=== PATIENT | female | born 1940 | race Caucasian/White ===

== ENCOUNTER 2017-03-05 15:13 | Inpatient (IN) | payer MEDICARE, BC, MEDICAID ==
[2017-03-05] MEDS ORDERED: Sodium Chloride 0.9% 10 ML Syringe FLUSH PRN (15:46)
[2017-03-05] MEDS: Sodium Chloride 0.9% 1,000 ML IV SCH (16:03)
--- NOTE | 2017-03-05 16:20 | CT ---
Head CT Technique: Multiple axial sections through the brain were obtained. Intravenous contrast was utilized. Comparison: No previous intracranial imaging is available. Findings: Ventricles along with basal cisterns and sulci over the convexities are mildly prominent. Diminished density is noted within portions of the basal ganglia, periventricular and subcortical white matter compatible with small vessel ischemic demyelination change. No other abnormal parenchymal densities are seen. No evidence of intracranial hemorrhage. No midline shift or mass effect is seen. Bone window settings were reviewed which shows the visualized sinuses to appear clear. No acute calvarial abnormality is seen. Impression: 1. Senescent change as described above. No acute intracranial abnormality is identified. Diagnostic code #2
--- NOTE | 2017-03-05 16:46 | EDM.PDOC ---
ED HPI GENERAL MEDICAL PROBLEM - General Chief Complaint: Neurological Problem Stated Complaint: SHOWINGS SIGNS OF STROKE Time Seen by Provider: 03/05/17 15:21 Source of Information: Reports: Patient, Long Term Records History Limitations: Reports: Other (Dementia) - History of Present Illness INITIAL COMMENTS - FREE TEXT/NARRATIVE: The patient is a resident of [facility]. The night staff noticed she was acting different last night. This morning she needed more help getting ready and feeding herself. She also uses a walker and she could not do that today. They thought she had some facial drooping to the right. She has generalized weakness. She denies fever, chills, cough, congestion, runny nose, chest pain, shortness of breath, abdominal pain, nausea or vomiting. She had a strong urine odor when they were changing her attends. She is sleepy during my exam but she would follow my commands and shake her head yes or no for my questions. Onset: Gradual Duration: Day(s): (last night) Improves with: Reports: None Worsens with: Reports: None Associated Symptoms: Denies: Cough, Fever/Chills, Headaches, Nausea/Vomiting, Shortness of Breath Back Pain Score (Numeric/FACES): 6 - Related Data Allergies Allergy/AdvReac Type Severity Reaction Status Date / Time meperidine HCl [From Demerol] Allergy Cannot Verified 03/15/15 22:05 Remember Home Meds: Home Meds Acetaminophen [Tylenol Extra Strength] 1,000 mg PO 17 03/15/15 [History] Potassium Chloride [Klor-Con] 20 meq PO BID 03/15/15 [History] metFORMIN [Glucophage] 1,000 mg PO BIDMEALS 03/15/15 [History] Aspirin [[place]ain[place] Chewable Aspirin] 81 mg PO DAILY 08/22/15 [History] Cholecalciferol (Vitamin D3) [Vitamin D3] 2,000 unit PO DAILY 08/22/15 [History] Cyanocobalamin (Vitamin B-12) [B-12] 1,000 mcg PO DAILY 08/22/15 [History] Fish Oil/[place]-3 Fatty Acids [Fish Oil 1,000 MG] 1 each PO DAILY 08/22/15 [ History] Losartan/Hydrochlorothiazide [Losartan-HCTZ 50-12.5 MG] 1 each PO DAILY [History] Memantine HCl [Namenda] 28 mg PO DAILY 08/22/15 [History] Sertraline [Zoloft] 100 mg PO DAILY 08/22/15 [History] risperiDONE 1 mg PO BID 08/22/15 [History] traZODone 50 mg PO BEDTIME #30 tablet 08/26/15 [Rx] Hydrocodone/Acetaminophen [[place] 5-325 Tablet] 1 each PO TID 03/05/17 [History] LORazepam [Ativan] 0.5 mg PO Q6H PRN 03/05/17 [History] Magnesium Hydroxide [Milk of Magnesia] 400 mg PO ASDIRECTED PRN 03/05/17 [ History] Rivastigmine [Exelon] 1 each TD DAILY 03/05/17 [History] [place] Hose 1 applic TOP DAILY 03/05/17 [History] Warfarin [Coumadin] 3 mg PO ASDIRECTED 03/05/17 [History] Warfarin [Coumadin] 4.5 mg PO ASDIRECTED 03/05/17 [History] Past Medical History HEENT History: Reports: Hard of Hearing, Impaired Vision Cardiovascular History: Reports: Hypertension, Other (See Below) Other Cardiovascular History: hypokalemis Gastrointestinal History: Reports: GERD Other Gastrointestinal History: dyspepsia Genitourinary History: Reports: UTI, Recurrent HOU[employer]ING History: Reports: Musculoskeletal History: Reports: Back Pain, Chronic, Osteoporosis, Osteoarthritis Other Musculoskeletal History: bilateral hip osteoarthritis, chronic low back pain Neurological History: Reports: Other (See Below) Other Neuro History: mild cognitive impairment Psychiatric History: Reports: Alzheimers Disease, Dementia Other Psychiatric History: generalized anxiety disorder Endocrine/Metabolic History: Reports: Diabetes, Type II Hematologic History: Reports: Anemia, B12 Deficiency Oncologic (Cancer) History: Reports: Other (See Below) Other Oncologic History: malignant meoplasm of ovary - Past Surgical History Female Surgical History: Reports: Hysterectomy Social & Family History - Family History Family Medical History: Unobtainable - Tobacco Use Smoking Status *Q: Never Smoker Used Tobacco, but Quit: Yes Month Tobacco Last Used: unknown Second Hand Smoke Exposure: No - Caffeine Use Caffeine Use: Reports: Coffee, Tea - Recreational Drug Use Recreational Drug Use: No ED ROS GENERAL - Review of Systems Review Of Systems: See Below Constitutional: Reports: No Symptoms HEENT: Reports: No Symptoms Respiratory: Reports: No Symptoms Cardiovascular: Reports: No Symptoms Endocrine: Reports: No Symptoms GI/Abdominal: Reports: No Symptoms : Reports: No Symptoms Musculoskeletal: Reports: No Symptoms Skin: Reports: No Symptoms Neurological: Reports: Weakness (Generalized weakness) ED EXAM, NEURO - Physical Exam Exam: See Below Exam Limited By: No Limitations General Appearance: Alert, No Apparent Distress Ears: Normal External Exam Nose: Normal Inspection Head Exam: Atraumatic, Normocephalic Neck: Normal Inspection Respiratory/Chest: No Respiratory Distress, Lungs Clear, Normal Breath Sounds Cardiovascular: Regular Rate, Rhythm, No Edema, No Murmur GI/Abdominal: Soft, Non-Tender, No Organomegaly, No Mass Neurological: Other (Sleepy but she answers questions and follows commands. She has generalized weakness but equal strength. ) Back Exam: Normal Inspection Extremities: Normal Inspection EKG INTERPRETATION EKG Date: 03/05/17 Time: 15:27 Rhythm: NSR Rate (Beats/Min): 94 [place]: Normal P-Wave: Present QRS: Normal ST-T: Normal QT: Normal IN/PQ Interval: 1st degree HB Course - Vital Signs Last Recorded V/S: Last Vital Signs Temp 98.1 F 03/05/17 16:27 Pulse 83 03/05/17 17:00 Resp 18 03/05/17 17:00 BP 108/66 03/05/17 17:00 Pulse Ox 97 03/05/17 17:00 - Orders/Labs/Meds Orders: Active Orders 24 hr Category Date Time Status EKG Documentation Completion [RC] STAT Care 03/05/17 15:41 Active Peripheral IV Care [RC] . DIRECTED Care 03/05/17 15:46 Active Urinary Catheter Assessment [RC] ASDIRECTED Care 03/05/17 16:06 Active Chest 1V Frontal [CR] Stat Exams 03/05/17 15:46 Taken CULTURE BLOOD [BC] Stat Lab 03/05/17 16:54 Ordered CULTURE BLOOD [BC] Stat Lab 03/05/17 16:54 Ordered CULTURE URINE [RM] Stat Lab 03/05/17 15:35 Received Sodium Chloride 0.9% [Normal Saline] 1,000 ml Med 03/05/17 16:00 Active IV ASDIRECTED Sodium Chloride 0.9% [Saline Flush] Med 03/05/17 15:46 Active 10 ml FLUSH ASDIRECTED PRN cefTRIAXone [Rocephin] 2 gm Med 03/05/17 16:59 Active Sodium Chloride 0.9% [Normal Saline] 100 ml IV ONETIME Blood Culture x2 Reflex Set [OM.PC] Stat Oth 03/05/17 16:54 Ordered Peripheral IV Insertion Adult [OM.PC] Stat Oth 03/05/17 15:46 Ordered Medication Orders Sodium Chloride (Normal Saline) 1,000 mls @ 125 mls/hr IV ASDIRECTED VALORIE Last Admin: 03/05/17 16:03 Dose: 125 mls/hr Ceftriaxone Sodium 2 gm/ (Sodium Chloride) 100 mls @ 200 mls/hr IV ONETIME ONE Stop: 03/05/17 17:28 Last Admin: 03/05/17 17:10 Dose: 200 mls/hr Sodium Chloride (Saline Flush) 10 ml FLUSH ASDIRECTED PRN PRN Reason: Keep Vein Open Last Admin: 03/05/17 16:03 Dose: 10 ml Labs: Laboratory Tests 03/05/17 03/05/17 03/05/17 Range/Units 15:35 15:45 15:45 WBC 9.57 (3.98-10.04) K/mm3 RBC 4.17 (3.98-5.22) M/mm3 Hgb 12.8 (11.2-15.7) gm/L Hct 40.3 (34.1-44.9) % MCV 96.6 H (79.4-94.8) fl MCH 30.7 (25.6-32.2) pg MCHC 31.8 L (32.2-35.5) g/dl RDW Std Deviation 49.0 H (36.4-46.3) fL Plt Count 231 (182-369) K/mm3 MPV 9.6 (9.4-12.3) fl Neut % (Auto) 76.9 H (34.0-71.1) % Lymph % (Auto) 13.7 L (19.3-51.7) % [place] % (Auto) 9.0 (4.7-12.5) % Eos % (Auto) 0 L (0.7-5.8) Baso % (Auto) 0.3 (0.1-1.2) % Neut # (Auto) 7.36 H (1.56-6.13) K/mm3 Lymph # (Auto) 1.31 (1.18-3.74) K/mm3 [place] # (Auto) 0.86 H (0.24-0.36) K/mm3 Eos # (Auto) 0.00 L (0.04-0.36) K/mm3 Baso # (Auto) 0.03 (0.01-0.08) K/mm3 PT (8.0-13.0) SECONDS INR Sodium 140 (136-145) mEq/L Potassium 4.6 (3.5-5.1) mEq/L Chloride 105 (98-107) mEq/L Carbon Dioxide 27 (21-32) mEq/L Anion Gap 12.6 (5-15) BUN 25 H (7-18) mg/dL Creatinine 1.2 H (0.55-1.02) mg/dL Est Cr Clr Drug Dosing 38.98 mL/min Estimated GFR (MDRD) 43 (>60) mL/min BUN/Creatinine Ratio 20.8 H (14-18) Glucose 129 H (83-115) mg/dL Calcium 9.8 (8.5-10.1) mg/dL Total Bilirubin 0.2 (0.2-1.0) mg/dL AST 15 (15-37) U/L ALT 21 (14-59) U/L Alkaline Phosphatase 53 (46-116) U/L Troponin I < 0.017 (0.00-0.056) ng/mL Total Protein 7.4 (6.4-8.2) g/dl Albumin 3.4 (3.4-5.0) g/dl Globulin 4.0 gm/dL Albumin/Globulin Ratio 0.9 L (1-2) Urine Color Yellow (Yellow) Urine Appearance Clear (Clear) Urine pH 5.5 (5.0-8.0) Ur Specific [place] 1.025 (1.005-1.030) Urine Protein Negative (Negative) Urine Glucose (UA) Negative (Negative) Urine Ketones Negative (Negative) Urine Occult Blood Trace-lysed H (Negative) Urine Nitrite Positive H (Negative) Urine Bilirubin Negative (Negative) Urine Urobilinogen 0.2 (0.2-1.0) Ur Leukocyte Esterase Trace H (Negative) Urine RBC 0-5 (0-5) /hpf Urine WBC 5-10 H (0-5) /hpf Ur Epithelial Cells 0-5 (0-5) /hpf Urine Bacteria Many H (FEW) /hpf Urine Mucus Few (FEW) /hpf 03/05/17 Range/Units 15:45 WBC (3.98-10.04) K/mm3 RBC (3.98-5.22) M/mm3 Hgb (11.2-15.7) gm/L Hct (34.1-44.9) % MCV (79.4-94.8) fl MCH (25.6-32.2) pg MCHC (32.2-35.5) g/dl RDW Std Deviation (36.4-46.3) fL Plt Count (182-369) K/mm3 MPV (9.4-12.3) fl Neut % (Auto) (34.0-71.1) % Lymph % (Auto) (19.3-51.7) % [place] % (Auto) (4.7-12.5) % Eos % (Auto) (0.7-5.8) Baso % (Auto) (0.1-1.2) % Neut # (Auto) (1.56-6.13) K/mm3 Lymph # (Auto) (1.18-3.74) K/mm3 [place] # (Auto) (0.24-0.36) K/mm3 Eos # (Auto) (0.04-0.36) K/mm3 Baso # (Auto) (0.01-0.08) K/mm3 PT 31.0 H (8.0-13.0) SECONDS INR 2.67 Sodium (136-145) mEq/L Potassium (3.5-5.1) mEq/L Chloride (98-107) mEq/L Carbon Dioxide (21-32) mEq/L Anion Gap (5-15) BUN (7-18) mg/dL Creatinine (0.55-1.02) mg/dL Est Cr Clr Drug Dosing mL/min Estimated GFR (MDRD) (>60) mL/min BUN/Creatinine Ratio (14-18) Glucose (83-115) mg/dL Calcium (8.5-10.1) mg/dL Total Bilirubin (0.2-1.0) mg/dL AST (15-37) U/L ALT (14-59) U/L Alkaline Phosphatase (46-116) U/L Troponin I (0.00-0.056) ng/mL Total Protein (6.4-8.2) g/dl Albumin (3.4-5.0) g/dl Globulin gm/dL Albumin/Globulin Ratio (1-2) Urine Color (Yellow) Urine Appearance (Clear) Urine pH (5.0-8.0) Ur Specific [place] (1.005-1.030) Urine Protein (Negative) Urine Glucose (UA) (Negative) Urine Ketones (Negative) Urine Occult Blood (Negative) Urine Nitrite (Negative) Urine Bilirubin (Negative) Urine Urobilinogen (0.2-1.0) Ur Leukocyte Esterase (Negative) Urine RBC (0-5) /hpf Urine WBC (0-5) /hpf Ur Epithelial Cells (0-5) /hpf Urine Bacteria (FEW) /hpf Urine Mucus (FEW) /hpf Meds: Medications Generic Name Dose Route Start Last Admin Trade Name Freq PRN Reason Stop Dose Admin Sodium Chloride 1,000 mls @ 125 mls/hr 03/05/17 16:00 03/05/17 16:03 Normal Saline IV 125 mls/hr ASDIRECTED VALORIE Administration Ceftriaxone Sodium 2 gm/ 100 mls @ 200 mls/hr 03/05/17 16:59 03/05/17 17:10 Sodium Chloride IV 03/05/17 17:28 200 mls/hr ONETIME ONE Administration Sodium Chloride 10 ml 03/05/17 15:46 03/05/17 16:03 Saline Flush FLUSH 10 ml ASDIRECTED PRN Administration Keep Vein Open - Re-Assessments/Exams Free Text/Narrative Re-Assessment/Exam: 03/05/17 16:50 I ordered an IV NS at 125mL/hr, EKG, labs, UA, CXR and CT of her head. 03/05/17 16:[address] was negative. Her CXR shows no infiltrates. Her CBC looks good. Her creatinine is slightly elevated at 1.2. Her troponin is negative. Her UA shows a UTI. I ordered a urine culture and blood cultures. I will order rocephin 2 grams IV. 03/05/17 16:59 03/05/17 17:[address] Ugalde and he agreed to the admission. The patient has a UTI and she has mental status changes from it. Departure - Departure Time of Disposition: 17:25 Disposition: Admitted As Inpatient 65 Condition: Fair Clinical Impression: Renal insufficiency UTI (urinary tract infection) Qualifiers: Urinary tract infection type: site unspecified Hematuria presence: without hematuria Qualified Code(s): N39.0 - Urinary tract infection, site not specified Altered mental status Qualifiers: Altered mental status type: unspecified Qualified Code(s): R41.82 - Altered mental status, unspecified - Discharge Information Referrals: Maxx Hutton MD [Primary Care Provider] - Forms: ED Department Discharge - My Orders Last 24 Hours: My Active Orders 03/05/17 15:35 CULTURE URINE [RM] Stat 03/05/17 15:41 EKG Documentation Completion [RC] STAT 03/05/17 15:46 Peripheral IV Care [RC] . DIRECTED Chest 1V Frontal [CR] Stat Sodium Chloride 0.9% [Saline Flush] 10 ml FLUSH ASDIRECTED PRN Peripheral IV Insertion Adult [OM.PC] Stat 03/05/17 16:00 Sodium Chloride 0.9% [Normal Saline] 1,000 ml IV ASDIRECTED 03/05/17 16:06 Urinary Catheter Assessment [RC] ASDIRECTED 03/05/17 16:54 CULTURE BLOOD [BC] Stat CULTURE BLOOD [BC] Stat Blood Culture x2 Reflex Set [OM.PC] Stat 03/05/17 16:59 cefTRIAXone [Rocephin] 2 gm Sodium Chloride 0.9% [Normal Saline] 100 ml IV ONETIME - Assessment/Plan Last 24 Hours: My Active Orders 03/05/17 15:35 CULTURE URINE [RM] Stat 03/05/17 15:41 EKG Documentation Completion [RC] STAT 03/05/17 15:46 Peripheral IV Care [RC] . DIRECTED Chest 1V Frontal [CR] Stat Sodium Chloride 0.9% [Saline Flush] 10 ml FLUSH ASDIRECTED PRN Peripheral IV Insertion Adult [OM.PC] Stat 03/05/17 16:00 Sodium Chloride 0.9% [Normal Saline] 1,000 ml IV ASDIRECTED 03/05/17 16:06 Urinary Catheter Assessment [RC] ASDIRECTED 03/05/17 16:54 CULTURE BLOOD [BC] Stat CULTURE BLOOD [BC] Stat Blood Culture x2 Reflex Set [OM.PC] Stat 03/05/17 16:59 cefTRIAXone [Rocephin] 2 gm Sodium Chloride 0.9% [Normal Saline] 100 ml IV ONETIME
[2017-03-05] MEDS ORDERED: cefTRIAXone 2 GM in Sodium Chloride 0.9% 100 ML IV ONE (16:59)
[2017-03-05] MEDS ORDERED: Diphtheria,Pertussis(Acell),Tetanus Vaccine 0.5 ML SDV IM ONE (18:25)
[2017-03-05] MEDS ORDERED: LORazepam 0.5 MG Tab PO PRN (19:13)
[2017-03-05] MEDS ORDERED: Magnesium Hydroxide 400 MG/5 ML Susp 30 ML Cup PO PRN ×2 (19:13→22:47)
--- NOTE | 2017-03-05 19:13 | PCM.HP ---
H&P History of Present Illness - General Date of Service: 03/05/17 Admit Problem/Dx: Admission Diagnosis/Problem Admission Diagnosis/Problem UTI, Urinary tract infectious disease Source of Information: Patient, Old Records, Provider, RN Notes Reviewed History Limitations: Reports: Altered Mental Status, Physical Impairment - History of Present Illness Initial Comments - Free Text/Narative: This is a 77 yo elderly white female with past medical hx/o Impaired Vision/ Hearing, HTN, DM2, Chronic Anemia, Chronic Hypokalemia, GERD/Dyspepsia, Chronic Constipation, Chronic Back Pain/Left Hip Pain, Osteoporosis, OA/DJD, Alzheimer' s Disease, Schizophrenia/Psychosis, JAKOB, On warfarin therapy for PE, Urinary Retention, and Vitamin B 12 Deficiency who was brought in from [facility] due to change in her demeanor. She was observed needing more help getting ready and feeding herself. Per secondary sources, she may have some facial droop to the right and generalized weakness. She denies any systemic signs of infection. No chest pain or shortness of breath. No GI or complaints. Patient is a poor historian. Her history of present illness was obtained from secondary sources. Her initial workup in the emergency department shows a CBC remarkable for neutrophils of 76.9% and lymphocytes of 13.7%. INR is therapeutic at 2.67. Her chemistry is remarkable for BUN of 25, creatinine of 1.2, glucose of 129. Her troponin 1 is negative. Her UA is suggestive of urinary tract infection. The EKG shows normal sinus rhythm. Her chest x-ray shows no acute abnormal finding. Her head CT scan report reads no acute intra-cranial abnormalities identified. Patient is being admitted for altered mental status and urinary tract infection. She is DNR. Back Pain Score (Numeric/FACES): 6 - Related Data Allergies/Adverse Reactions: Allergies Allergy/AdvReac Type Severity Reaction Status Date / Time meperidine HCl [From Demerol] Allergy Cannot Verified 03/15/15 22:05 Remember Home Medications: Home Meds Acetaminophen [Tylenol Extra Strength] 1,000 mg PO 17 03/15/15 [History] Potassium Chloride [Klor-Con] 20 meq PO BID 03/15/15 [History] metFORMIN [Glucophage] 1,000 mg PO BIDMEALS 03/15/15 [History] Aspirin [[place] Chewable Aspirin] 81 mg PO DAILY 08/22/15 [History] Cholecalciferol (Vitamin D3) [Vitamin D3] 2,000 unit PO DAILY 08/22/15 [History] Cyanocobalamin (Vitamin B-12) [B-12] 1,000 mcg PO DAILY 08/22/15 [History] Fish Oil/[place]-3 Fatty Acids [Fish Oil 1,000 MG] 1 each PO DAILY 08/22/15 [ History] Losartan/Hydrochlorothiazide [Losartan-HCTZ 50-12.5 MG] 1 each PO DAILY [History] Memantine HCl [Namenda] 28 mg PO DAILY 08/22/15 [History] Sertraline [Zoloft] 100 mg PO DAILY 08/22/15 [History] risperiDONE 1 mg PO BID 08/22/15 [History] traZODone 50 mg PO BEDTIME #30 tablet 08/26/15 [Rx] Hydrocodone/Acetaminophen [[place] 5-325 Tablet] 1 each PO TID 03/05/17 [History] LORazepam [Ativan] 0.5 mg PO Q6H PRN 03/05/17 [History] Magnesium Hydroxide [Milk of Magnesia] 1,500 ml PO ASDIRECTED PRN 03/05/17 [ History] Rivastigmine [Exelon] 1 each TD DAILY 03/05/17 [History] Kyle Hose 1 applic TOP DAILY 03/05/17 [History] Warfarin [Coumadin] 3 mg PO ASDIRECTED 03/05/17 [History] Warfarin [Coumadin] 4.5 mg PO ASDIRECTED 03/05/17 [History] Past Medical History HEENT History: Reports: Hard of Hearing, Impaired Vision Cardiovascular History: Reports: Hypertension, Other (See Below) Other Cardiovascular History: hypokalemis Gastrointestinal History: Reports: GERD Other Gastrointestinal History: dyspepsia Genitourinary History: Reports: UTI, Recurrent [employer] History: Reports: Musculoskeletal History: Reports: Back Pain, Chronic, Osteoporosis, Osteoarthritis Other Musculoskeletal History: bilateral hip osteoarthritis, chronic low back pain Neurological History: Reports: Other (See Below) Other Neuro History: mild cognitive impairment Psychiatric History: Reports: Alzheimers Disease, Dementia, Schizophrenia Other Psychiatric History: generalized anxiety disorder Endocrine/Metabolic History: Reports: Diabetes, Type II Hematologic History: Reports: Anemia, B12 Deficiency Oncologic (Cancer) History: Reports: Other (See Below) Other Oncologic History: malignant meoplasm of ovary - Infectious Disease History Infectious Disease History: Reports: Other (See Below) Other Infectious Disease History: unable to assess pt. is confused. - Past Surgical History Female Surgical History: Reports: Hysterectomy Social & Family History - Family History Family Medical History: Unobtainable - Tobacco Use Smoking Status *Q: Unknown Ever Smoked Used Tobacco, but Quit: Yes Month Tobacco Last Used: unknown Second Hand Smoke Exposure: No - Caffeine Use Caffeine Use: Reports: Other Other Caffeine Use: unable to access - Recreational Drug Use Recreational Drug Use: No H&P Review of Systems - Review of Systems: Review Of Systems: See Below Free Text/Narrative: ROS Limited due to AMS Neurological: Reports: Confusion (Baseline Dementia), Difficulty Walking, Weakness, Gait Disturbance Hematologic/Lymphatic: Reports: No Symptoms Immunologic: Reports: No Symptoms Exam - Exam Exam: See Below - Vital Signs Vital Signs: Last Vital Signs Temp 36.7 C 03/05/17 18:06 Pulse 85 03/05/17 18:06 Resp 14 03/05/17 18:06 BP 135/69 03/05/17 18:06 Pulse Ox 91 L 03/05/17 18:06 Weight: 72.938 kg - Exam General: Cooperative, Lethargic, Other (Answers questions and follow commands). No: Mild Distress HEENT: Mucosa Moist & [place]. No: Conjunctiva Clear, Nares Patent, Normal Nasal Septum, Pupils Equal, Pupils Reactive Neck: Supple. No: JVD Lungs: Clear to Auscultation, Normal Respiratory Effort Cardiovascular: Regular Rate, Regular Rhythm. No: Systolic Murmur GI/Abdominal Exam: Normal Bowel Sounds, Soft, Non-Tender, No Organomegaly (Female) Exam: Deferred Rectal (Female) Exam: Deferred Back Exam: Normal Inspection Extremities: Normal Inspection, Normal Range of Motion, Non-Tender, No Pedal Edema Peripheral Pulses: 2+: Posterior Tibial (L), Posterior Tibial (R), Dorsalis Pedis (L), Dorsalis Pedis (R) Skin: Warm, Dry, Intact Neuro Extensive - Mental Status: Normal Mood/Affect, Nl Response to Commands. No: Oriented x3, Memory Intact Neuro Extensive - Motor, Sensory, Reflexes: CN II-XII Intact (limited exam due to lethargy ), Abnormal Gait, Other (She is wheelchair bound ) Psychiatric: Normal Affect, Normal Mood - Patient Data Result Diagrams: 03/06/17 06:00 03/06/17 06:00 EKG INTERPRETATION EKG Date: 03/05/17 Time: 15:27 Rhythm: NSR Rate (Beats/Min): 94 [place]: Normal P-Wave: Present QRS: Normal ST-T: Normal QT: Normal UT/PQ Interval: 1st Degree AVB *Q Meaningful Use (ADM) - VTE *Q VTE Criteria *Q: - Stroke *Q Stroke Criteria *Q: - AMI *Q AMI Criteria *Q: Problem List Initiated/Reviewed/Updated: Yes Orders Last 24hrs: Active Orders 24 hr Category Date Time Status Admission Status [Patient Status] [ADT] Routine ADT 03/05/17 18:00 Active Vaccines to be Administered [RC] PER UNIT ROUTINE Care 03/05/17 18:25 Active METH-RESIST S.AUR,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 [MOLEC] Routine Lab 03/05/17 18:29 Received Medication Orders Sodium Chloride (Normal Saline) 1,000 mls @ 125 mls/hr IV ASDIRECTED VALORIE Last Admin: 03/05/17 16:03 Dose: 125 mls/hr Sodium Chloride (Saline Flush) 10 ml FLUSH ASDIRECTED PRN PRN Reason: Keep Vein Open Last Admin: 03/05/17 16:03 Dose: 10 ml Assessment/Plan Comment:: Assessment/Plan: Acute: AMS/Encephalopathy - Acute on Chronic likely from UA - Has underlying Alzheimer's Disease and Medications Side effects: Trazodone 50 mg po HS, [place] 5 mg po TID, Namenda 28 mg po Daily, and Exelon 1 tab po TD Daily - UA pos for UTI - CXR negative for acute abnormal findings Urinary Tract Infection - Has Urinary Retention - Risk factors: Impaired Cognition, Non-Ambulatory, Hx/o Recurrent UTI and on Meds with Anti-cholinergic - Likely the cause of her Acute AMS - UA suggestive of UTI - Received IV Rocephin in ED - Continue IV ATB Generalized Weakness - Head CT scan negative for acute abnormal findings - Likely multi-factorial - PT/OT consult - Vit D level and TFT in AM - Fall Precautions Mild Renal Insufficiency - BUn 25 and Cr is 1.2 - Baseline is Cr 0.8-0.9 - CUrrently Hydrating Hx/o Pulmonary Embolism - On Warfarin Therapy - INR is therapeutic at this point Chronic: Impaired Vision/Hearing HTN DM2 Anemia Hypokalemia GERD/Dyspepsia Constipation Back Pain/Left Hip Pain Osteoporosis OA/DJD Alzheimer's Disease Schizophrenia/Psychosis JAKOB Vit B 12 Deficiency Plan: Admit to Med-Surg Routine AM Labs Resume Home Meds Aspiration/Fall Precautions Protocol PT/OT consult SW/CM for d/c planning Code status: DNR
[2017-03-05] MEDS ORDERED: Warfarin 3 MG Tab PO SCH ×2 (19:15→20:00)
[2017-03-05] MEDS ORDERED: hydrALAZINE 20 MG/ML SDV IVPUSH PRN (19:15)
[2017-03-05] MEDS ORDERED: LORazepam 2 MG/ML MDV IVPUSH PRN (19:15)
[2017-03-05] MEDS ORDERED: Metoprolol Tartrate 5 MG/5 ML SDV IVPUSH PRN (19:15)
[2017-03-05] MEDS ORDERED: Albuterol 0.083% 2.5 MG/3 ML Neb Soln NEB PRN (19:22)
[2017-03-05] MEDS ORDERED: Promethazine 12.5 MG in Sodium Chloride 0.9% 50 ML IV PRN (19:22)
[2017-03-05] MEDS ORDERED: Polyethylene Glycol 3350 Powder 17 GM Packet PO PRN (19:22)
[2017-03-05] MEDS ORDERED: Acetaminophen 325 MG Tab PO PRN (19:22)
[2017-03-05] MEDS ORDERED: LORazepam 2 MG/ML MDV IV PRN (19:22)
[2017-03-05] MEDS ORDERED: Ondansetron 4 MG/2 ML SDV IV PRN (19:22)
[2017-03-05] MEDS ORDERED: HYDROmorphone 1 MG/ML Syringe IVPUSH PRN (19:22)
[2017-03-05] MEDS ORDERED: Bisacodyl 5 MG Tab PO PRN (19:22)
[2017-03-05] MEDS ORDERED: 50% Dextrose in Water 50 ML Syringe IVPUSH PRN (19:27)
[2017-03-05] MEDS ORDERED: Insulin Aspart 100 Units/ML 3 ML Pen SUBCUT SCH (19:30)
[2017-03-05] MEDS: Potassium Chloride 20 MEQ Tab.ER PO SCH (22:08)
[2017-03-05] MEDS: Acetaminophen/HYDROcodone 325-5 MG Tab PO SCH (22:08)
[2017-03-05] MEDS: risperiDONE 1 MG Tab PO SCH (22:09)
[2017-03-05] MEDS: traZODone 50 MG Tab PO SCH (22:10)
[2017-03-06] MEDS: Sodium Chloride 0.9% 1,000 ML IV SCH ×4 (01:48→23:07)
[2017-03-06] MEDS: Insulin Aspart 100 Units/ML 3 ML Pen SUBCUT SCH ×3 (06:44→21:45)
[2017-03-06] MEDS: metFORMIN 500 MG Tab PO SCH ×2 (06:47→16:08)
[2017-03-06] MEDS: Potassium Chloride 20 MEQ Tab.ER PO SCH ×2 (06:47→16:08)
--- NOTE | 2017-03-06 07:53 | PCM.PN ---
- General Info Date of Service: 03/06/17 Admission Dx/Problem (Free Text): Admission Diagnosis/Problem Admission Diagnosis/Problem UTI, Urinary tract infectious disease Subjective Update: Follow Up Functional Status: Reports: Pain Controlled, Tolerating Diet, Urinating. Denies : Ambulating, New Symptoms - Review of Systems General: Denies: Fever, Weakness, Fatigue, Malaise, Chills HEENT: Reports: No Symptoms Pulmonary: Denies: Shortness of Breath Cardiovascular: Denies: Chest Pain, Palpitations, Dyspnea on Exertion, Lightheadedness Gastrointestinal: Denies: Abdominal Pain, Nausea, Vomiting Genitourinary: Reports: No Symptoms Musculoskeletal: Reports: No Symptoms Skin: Denies: Cyanosis, Pallor, Diaphoresis, Rash Neurological: Denies: Confusion, Difficulty Walking, Weakness, Gait Disturbance Psychiatric: Denies: Depression, Anxiety, Agitation, Hallucinations Systems Review Comment:: No significant overnight or acute issues. She slept and feels pretty good. She is drinking and eating okay. She wants to call her . She has no new complaints. - Patient Data Vitals - Most Recent: Last Vital Signs Temp 37.1 C 03/06/17 07:37 Pulse 82 03/06/17 07:37 Resp 14 03/06/17 07:37 BP 129/71 03/06/17 07:37 Pulse Ox 93 L 03/06/17 07:37 Weight - Most Recent: 73.119 kg I&O - Last 24 Hours: Intake & Output 03/05/17 03/06/17 03/06/17 22:59 06:59 14:59 Intake Total 1149 Balance 1149 Lab Results Last 24 Hours: Laboratory Results - last 24 hr 03/05/17 03/05/17 03/05/17 Range/Units 18:29 20:17 22:06 WBC (3.98-10.04) K/mm3 RBC (3.98-5.22) M/mm3 Hgb (11.2-15.7) gm/L Hct (34.1-44.9) % MCV (79.4-94.8) fl MCH (25.6-32.2) pg MCHC (32.2-35.5) g/dl RDW Std Deviation (36.4-46.3) fL Plt Count (182-369) K/mm3 MPV (9.4-12.3) fl Neut % (Auto) (34.0-71.1) % Lymph % (Auto) (19.3-51.7) % [place] % (Auto) (4.7-12.5) % Eos % (Auto) (0.7-5.8) Baso % (Auto) (0.1-1.2) % Neut # (Auto) (1.56-6.13) K/mm3 Lymph # (Auto) (1.18-3.74) K/mm3 [place] # (Auto) (0.24-0.36) K/mm3 Eos # (Auto) (0.04-0.36) K/mm3 Baso # (Auto) (0.01-0.08) K/mm3 Manual Slide Review PT 34.2 H (8.0-13.0) SECONDS INR 2.93 Sodium (136-145) mEq/L Potassium (3.5-5.1) mEq/L Chloride (98-107) mEq/L Carbon Dioxide (21-32) mEq/L Anion Gap (5-15) BUN (7-18) mg/dL Creatinine (0.55-1.02) mg/dL Est Cr Clr Drug Dosing mL/min Estimated GFR (MDRD) (>60) mL/min BUN/Creatinine Ratio (14-18) Glucose (83-115) mg/dL POC Glucose 126 H (83-110) mg/dL Calcium (8.5-10.1) mg/dL Magnesium (1.8-2.4) mg/dl C-Reactive Protein (<1.0) mg/dL Free T4 (0.76-1.46) ng/dL TSH 3rd Generation (0.358-3.74) uIU/mL MRSA (PCR) Negative 03/06/17 03/06/17 03/06/17 Range/Units 06:00 06:00 06:00 WBC 7.21 (3.98-10.04) K/mm3 RBC 3.96 L (3.98-5.22) M/mm3 Hgb 12.1 (11.2-15.7) gm/L Hct 38.0 (34.1-44.9) % MCV 96.0 H (79.4-94.8) fl MCH 30.6 (25.6-32.2) pg MCHC 31.8 L (32.2-35.5) g/dl RDW Std Deviation 48.3 H (36.4-46.3) fL Plt Count 199 (182-369) K/mm3 MPV 9.4 (9.4-12.3) fl Neut % (Auto) 71.9 H (34.0-71.1) % Lymph % (Auto) 14.7 L (19.3-51.7) % [place] % (Auto) 12.6 H (4.7-12.5) % Eos % (Auto) 0.1 L (0.7-5.8) Baso % (Auto) 0.3 (0.1-1.2) % Neut # (Auto) 5.18 (1.56-6.13) K/mm3 Lymph # (Auto) 1.06 L (1.18-3.74) K/mm3 [place] # (Auto) 0.91 H (0.24-0.36) K/mm3 Eos # (Auto) 0.01 L (0.04-0.36) K/mm3 Baso # (Auto) 0.02 (0.01-0.08) K/mm3 Manual Slide Review Not Reportable PT 35.7 H (8.0-13.0) SECONDS INR 3.05 Sodium 140 (136-145) mEq/L Potassium 4.0 (3.5-5.1) mEq/L Chloride 103 (98-107) mEq/L Carbon Dioxide 28 (21-32) mEq/L Anion Gap 13.0 (5-15) BUN 21 H (7-18) mg/dL Creatinine 1.0 (0.55-1.02) mg/dL Est Cr Clr Drug Dosing 46.77 mL/min Estimated GFR (MDRD) 54 (>60) mL/min BUN/Creatinine Ratio 21.0 H (14-18) Glucose 124 H (83-115) mg/dL POC Glucose (83-110) mg/dL Calcium 8.7 (8.5-10.1) mg/dL Magnesium 1.5 L (1.8-2.4) mg/dl C-Reactive Protein 3.3 H* (<1.0) mg/dL Free T4 0.88 (0.76-1.46) ng/dL TSH 3rd Generation 0.871 (0.358-3.74) uIU/mL MRSA (PCR) 03/06/17 Range/Units 06:43 WBC (3.98-10.04) K/mm3 RBC (3.98-5.22) M/mm3 Hgb (11.2-15.7) gm/L Hct (34.1-44.9) % MCV (79.4-94.8) fl MCH (25.6-32.2) pg MCHC (32.2-35.5) g/dl RDW Std Deviation (36.4-46.3) fL Plt Count (182-369) K/mm3 MPV (9.4-12.3) fl Neut % (Auto) (34.0-71.1) % Lymph % (Auto) (19.3-51.7) % [place] % (Auto) (4.7-12.5) % Eos % (Auto) (0.7-5.8) Baso % (Auto) (0.1-1.2) % Neut # (Auto) (1.56-6.13) K/mm3 Lymph # (Auto) (1.18-3.74) K/mm3 [place] # (Auto) (0.24-0.36) K/mm3 Eos # (Auto) (0.04-0.36) K/mm3 Baso # (Auto) (0.01-0.08) K/mm3 Manual Slide Review PT (8.0-13.0) SECONDS INR Sodium (136-145) mEq/L Potassium (3.5-5.1) mEq/L Chloride (98-107) mEq/L Carbon Dioxide (21-32) mEq/L Anion Gap (5-15) BUN (7-18) mg/dL Creatinine (0.55-1.02) mg/dL Est Cr Clr Drug Dosing mL/min Estimated GFR (MDRD) (>60) mL/min BUN/Creatinine Ratio (14-18) Glucose (83-115) mg/dL POC Glucose 118 H (83-110) mg/dL Calcium (8.5-10.1) mg/dL Magnesium (1.8-2.4) mg/dl C-Reactive Protein (<1.0) mg/dL Free T4 (0.76-1.46) ng/dL TSH 3rd Generation (0.358-3.74) uIU/mL MRSA (PCR) Med Orders - Current: Current Medications Acetaminophen (Tylenol) 975 mg PO DAILY@1700 [facility] Acetaminophen (Tylenol) 650 mg PO Q4H PRN PRN Reason: Pain (Mild 1-3)/fever Hydrocodone Bitart/Acetaminophen (Alva 325-5 Mg) 1 tab PO TID [facility] Last Admin: 03/05/17 22:08 Dose: 1 tab Albuterol (Proventil Neb Soln) 2.5 mg NEB Q2H PRN PRN Reason: Shortness Of Breath/wheezing Aspirin (Halfprin) 81 mg PO DAILY [facility] Bisacodyl (Dulcolax) 5 mg PO DAILY PRN PRN Reason: Constipation Cholecalciferol (Vitamin D3) 2,000 units PO DAILY [facility] Cyanocobalamin (Vitamin B12) 1,000 mcg PO DAILY [facility] Dextrose/Water (Dextrose 50% In Water) 50 ml IVPUSH ASDIRECTED PRN PRN Reason: Hypoglycemia Fish Oil (Fish Oil) 1 gm PO DAILY [facility] Hydralazine HCl (Apresoline) 10 mg IVPUSH Q4H PRN PRN Reason: Hypertension Hydrochlorothiazide (Hydrochlorothiazide) 12.5 mg PO DAILY [facility] Hydromorphone HCl (Dilaudid) 0.25 mg IVPUSH Q2H PRN PRN Reason: Pain (severe 7-10) Sodium Chloride (Normal Saline) 1,000 mls @ 100 mls/hr IV ASDIRECTED [facility] Last Admin: 03/06/17 01:49 Dose: 125 mls/hr Promethazine HCl 12.5 mg/ (Sodium Chloride) 50.5 mls @ 100 mls/hr IV Q6H PRN PRN Reason: Nausea/Vomiting Ceftriaxone Sodium 1 gm/ (Sodium Chloride) 100 mls @ 200 mls/hr IV Q24H [facility] Insulin Aspart (Novolog) 0 unit SUBCUT BID [facility] PRN Reason: Protocol Last Admin: 03/06/17 06:44 Dose: Not Given Lorazepam (Ativan) 0.5 mg PO Q6H PRN PRN Reason: Anxiety Lorazepam (Ativan) 2 mg IVPUSH Q4H PRN PRN Reason: Seizures Lorazepam (Ativan) 0.25 mg IV Q6H PRN PRN Reason: Anxiety Losartan Potassium (Cozaar) 50 mg PO DAILY [facility] Magnesium Hydroxide (Milk Of Magnesia) 15 ml PO Q8H PRN PRN Reason: Constipation Magnesium Sulfate (Pharmacy To Dose - Magnesium Replacement) 1 dose .XX ASDIRECTED [facility] Memantine (Namenda) 28 mg PO DAILY [facility] Metformin HCl (Glucophage) 1,000 mg PO BIDMEALS [facility] Last Admin: 03/06/17 06:47 Dose: 1,000 mg Metoprolol Tartrate (Lopressor) 5 mg IVPUSH Q4H PRN PRN Reason: Tachycardia Non-Formulary Medication (Rivastigmine [Exelon]) 1 each TD DAILY [facility] Ondansetron HCl (Zofran) 4 mg IV Q6H PRN PRN Reason: Nausea/Vomiting Polyethylene Glycol (Miralax) 17 gm PO DAILY PRN PRN Reason: Constipation Potassium Chloride (Klor-Con M20) 20 meq PO BIDMEALS [facility] Last Admin: 03/06/17 06:47 Dose: 20 meq Potassium Chloride (Pharmacy To Dose - Potassium Replacement) 1 dose .XX ASDIRECTED [facility] Risperidone (Risperidal) 1 mg PO BID [facility] Last Admin: 03/05/17 22:09 Dose: 1 mg Senna/Docusate Sodium (Senna Plus) 1 tab PO BID PRN PRN Reason: Constipation Sertraline HCl (Zoloft) 100 mg PO DAILY [facility] Sodium Chloride (Saline Flush) 10 ml FLUSH ASDIRECTED PRN PRN Reason: Keep Vein Open Last Admin: 03/05/17 16:03 Dose: 10 ml Trazodone HCl (Trazodone) 50 mg PO BEDTIME [facility] Last Admin: 03/05/17 22:10 Dose: 50 mg Warfarin Sodium (Pharmacy To Dose - Warfarin) 1 dose .XX ASDIRECTED [facility] Warfarin Sodium (Coumadin) 4.5 mg PO MoFr@1800 [facility] Last Admin: 03/05/17 22:09 Dose: 4.5 mg Warfarin Sodium (Coumadin) 3 mg PO SUTUWETHSA [facility] Discontinued Medications Diphtheria/Tetanus/Acell Pertussis (Adacel) 0.5 ml IM .ONCE ONE Stop: 03/05/17 18:26 Ceftriaxone Sodium 2 gm/ (Sodium Chloride) 100 mls @ 200 mls/hr IV ONETIME ONE Stop: 03/05/17 17:28 Last Admin: 03/05/17 17:10 Dose: 200 mls/hr Insulin Aspart (Novolog) 0 unit SUBCUT ASDIRECTED [facility] PRN Reason: Protocol Magnesium Hydroxide (Milk Of Magnesia) ml PO ASDIRECTED PRN PRN Reason: Constipation Memantine (Namenda) 28 mg PO DAILY [facility] Warfarin Sodium (Coumadin) 3 mg PO ASDIRECTED [facility] Warfarin Sodium (Coumadin) 4.5 mg PO ASDIRECTED [facility] - Exam General: Alert, Cooperative, No Acute Distress HEENT: Pupils Equal, Pupils Reactive, EOMI, Mucous Membr. Moist/[place] Neck: Supple, Trachea Midline, No Thyromegaly Lungs: Clear to Auscultation, Normal Respiratory Effort Cardiovascular: Regular Rate, Regular Rhythm GI/Abdominal Exam: Normal Bowel Sounds, Soft, Non-Tender, No Organomegaly, No Distention (Female) Exam: Deferred Back Exam: Normal Inspection, Decreased Range of Motion Extremities: Normal Inspection, Normal Range of Motion, Non-Tender, No Pedal Edema Peripheral Pulses: 2+: Dorsalis Pedis (L), Dorsalis Pedis (R) Skin: Warm, Dry, Intact Neurological: No New Focal Deficit Psy/Mental Status: Alert, Normal Mood. No: Normal Affect Physical Findings Comments:: She seems to be at her baseline clinically. She is alert/awake and engaging. - Problem List Review Problem List Initiated/Reviewed/Updated: Yes - My Orders Last 24 Hours: My Active Orders 03/05/17 18:25 Vaccines to be Administered [RC] PER UNIT ROUTINE 03/05/17 19:13 LORazepam [Ativan] 0.5 mg PO Q6H PRN 03/05/17 19:15 LORazepam [Ativan] 2 mg IVPUSH Q4H PRN Magnesium Rep Pharmacy to Dose [Pharmacy to Dose - Magnesium Replacement] 1 dose .XX ASDIRECTED Metoprolol Tartrate [Lopressor] 5 mg IVPUSH Q4H PRN Potassium Rep Pharmacy to Dose [Pharmacy to Dose - Potassium Replacement] 1 dose .XX ASDIRECTED Warfarin Pharmacy to Dose [Pharmacy to Dose - Warfarin] 1 dose .XX ASDIRECTED hydrALAZINE [Apresoline] 10 mg IVPUSH Q4H PRN 03/05/17 19:22 Height and Weight [RC] 04 Intake and Output [RC] 04,22 Oxygen Therapy [RC] PRN Up ad Marisol [RC] ASDIRECTED VTE/DVT Education [RC] PER UNIT ROUTINE Vital Signs [RC] Q4HR Acetaminophen [Tylenol] 650 mg PO Q4H PRN Albuterol [Proventil Neb Soln] 2.5 mg NEB Q2H PRN Bisacodyl [Dulcolax] 5 mg PO DAILY PRN Docusate Sodium/Sennosides [Senna Plus] 1 tab PO BID PRN HYDROmorphone [Dilaudid] 0.25 mg IVPUSH Q2H PRN LORazepam [Ativan] 0.25 mg IV Q6H PRN Ondansetron [Zofran] 4 mg IV Q6H PRN Polyethylene Glycol 3350 [MiraLAX] 17 gm PO DAILY PRN Promethazine [Phenergan] 12.5 mg Sodium Chloride 0.9% [Normal Saline] 50 ml IV Q6H Resuscitation Status Routine 03/05/17 19:24 RT Aerosol Therapy [RC] ASDIRECTED 03/05/17 19:25 Consult to Case Management [CONS] Routine Consult to Industrial Education Teacher [CONS] Routine Consult to Spiritual Care [CONS] Routine OT Evaluation and Treatment [CONS] Routine PT Evaluation and Treatment [CONS] Routine 03/05/17 19:27 Blood Glucose Check, Bedside [RC] 07,21 Dextrose 50% in Water 50 ml IVPUSH ASDIRECTED PRN 03/05/17 20:00 Potassium Chloride [Klor-Con M20] 20 meq PO BIDMEALS Warfarin [Coumadin] 4.5 mg PO MoFr@1800 03/05/17 21:00 Acetaminophen/HYDROcodone [Alva 325-5 MG] 1 tab PO TID risperiDONE [RisperiDAL] 1 mg PO BID traZODone 50 mg PO BEDTIME 03/05/17 22:47 Magnesium Hydroxide [Milk of Magnesia] 15 ml PO Q8H PRN 03/05/17 Dinner Regular Diet [DIET] 03/06/17 06:00 VITAMIN D 25-HYROXY (D2, D3) [REF] Routine 03/06/17 07:00 Insulin Aspart [NovoLOG] See Protocol SUBCUT BID metFORMIN [Glucophage] 1,000 mg PO BIDMEALS 03/06/17 09:00 Aspirin [Halfprin] 81 mg PO DAILY Cholecalciferol (Vitamin D3) [Vitamin D3] 2,000 units PO DAILY Cyanocobalamin (Vitamin B12) [Vitamin B12] 1,000 mcg PO DAILY Fish Oil/[place]-3 Fatty Acids [Fish Oil] 1 gm PO DAILY Hydrochlorothiazide 12.5 mg PO DAILY Losartan [Cozaar] 50 mg PO DAILY Memantine [Namenda] 28 mg PO DAILY Rivastigmine [Exelon] 1 each TD DAILY Sertraline [Zoloft] 100 mg PO DAILY 03/06/17 17:00 Acetaminophen [Tylenol] 975 mg PO DAILY@1700 cefTRIAXone [Rocephin] 1 gm Sodium Chloride 0.9% [Normal Saline] 100 ml IV Q24H 03/06/17 18:00 Warfarin [Coumadin] 3 mg PO SUTUWETHSA 03/07/17 05:11 BASIC METABOLIC PANEL,BMP [CHEM] AM C-REACTIVE PROTEIN [CHEM] AM INR,PT,PROTHROMBIN TIME [COAG] AM MAGNESIUM [CHEM] AM 03/08/17 05:11 BASIC METABOLIC PANEL,BMP [CHEM] AM C-REACTIVE PROTEIN [CHEM] AM INR,PT,PROTHROMBIN TIME [COAG] AM MAGNESIUM [CHEM] AM 03/09/17 05:11 INR,PT,PROTHROMBIN TIME [COAG] AM MAGNESIUM [CHEM] AM - Plan Plan:: Assessment/Plan: Acute: Urinary Tract Infection - Has Urinary Retention - Risk factors: Impaired Cognition, Non-Ambulatory, Hx/o Recurrent UTI and on Meds with Anti-cholinergic - Likely the cause of her Acute AMS - UA suggestive of UTI; Pos GNR - Received IV Rocephin in ED - Continue IV ATB Generalized Weakness - Head CT scan negative for acute abnormal findings - Likely multi-factorial - Continue PT/OT consult - Vit D level penidng - TFT normal - Fall Precautions Mild Renal Insufficiency, Improved - BUn 25--> 21 and Cr is 1.2--> 1.0 - Baseline is Cr 0.8-0.9 - Continue IVF Hx/o Pulmonary Embolism - On Warfarin Therapy - INR is therapeutic at 3.05 - Pharmacy to monitor Hypomagnesemia - Mg 1.5 - 2/2 inadequate intake - Pharmacy to replete and monitor Resolved: AMS/Encephalopathy, She is now at baseline - Acute on Chronic likely from UA - Has underlying Alzheimer's Disease and Medications Side effects: Trazodone 50 mg po HS, Alva 5 mg po TID, Namenda 28 mg po Daily, and Exelon 1 tab po TD Daily - UA pos for GNR - CXR negative for acute abnormal findings Chronic: Impaired Vision/Hearing HTN DM2 Anemia Hypokalemia GERD/Dyspepsia Constipation Back Pain/Left Hip Pain Osteoporosis OA/DJD Alzheimer's Disease Schizophrenia/Psychosis JAKOB 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
[2017-03-06] MEDS ORDERED: Memantine 10 MG Tab PO SCH ×2 (09:00)
[2017-03-06] MEDS ORDERED: RIVASTIGMINE TD SCH (09:00)
[2017-03-06] MEDS ORDERED: [UNRECOGNIZED DRUG - OTHER] TOP SCH (09:00)
[2017-03-06] MEDS: Cholecalciferol (Vitamin D3) 1,000 Unit Tab PO SCH (09:13)
[2017-03-06] MEDS: Fish Oil/Omega-3 Fatty Acids 1 Gm Cap PO SCH (09:13)
[2017-03-06] MEDS: Sertraline 50 MG Tab PO SCH (09:14)
[2017-03-06] MEDS: Acetaminophen/HYDROcodone 325-5 MG Tab PO SCH ×3 (09:14→21:43)
[2017-03-06] MEDS: Hydrochlorothiazide 12.5 MG Cap PO SCH (09:14)
[2017-03-06] MEDS: Aspirin 81 MG Tab.EC PO SCH (09:14)
[2017-03-06] MEDS: Cyanocobalamin (Vitamin B12) 1,000 MCG Tab PO SCH (09:14)
[2017-03-06] MEDS: risperiDONE 1 MG Tab PO SCH ×2 (09:15→21:43)
[2017-03-06] MEDS: Losartan 25 MG Tab PO SCH (09:15)
[2017-03-06] MEDS ORDERED: cefTRIAXone 1 GM in Sodium Chloride 0.9% 100 ML IV SCH (17:00)
[2017-03-06] MEDS ORDERED: Acetaminophen 325 MG Tab PO SCH (17:00)
[2017-03-06] MEDS ORDERED: Magnesium Sulfate/Water 2 GM in Premix Bag 1 BAG IV ONE (17:30)
[2017-03-06] MEDS ORDERED: Warfarin 3 MG Tab PO SCH ×2 (18:00→18:22)
[2017-03-06] MEDS: traZODone 50 MG Tab PO SCH (21:43)
[2017-03-07] MEDS: Potassium Chloride 20 MEQ Tab.ER PO SCH (06:36)
[2017-03-07] MEDS: metFORMIN 500 MG Tab PO SCH (08:46)
[2017-03-07] MEDS: Insulin Aspart 100 Units/ML 3 ML Pen SUBCUT SCH (08:47)
[2017-03-07] MEDS: Losartan 25 MG Tab PO SCH (08:48)
[2017-03-07] MEDS: Acetaminophen/HYDROcodone 325-5 MG Tab PO SCH ×2 (08:49→14:44)
[2017-03-07] MEDS: Fish Oil/Omega-3 Fatty Acids 1 Gm Cap PO SCH (08:49)
[2017-03-07] MEDS: Hydrochlorothiazide 12.5 MG Cap PO SCH (08:49)
[2017-03-07] MEDS: Aspirin 81 MG Tab.EC PO SCH (08:49)
[2017-03-07] MEDS: risperiDONE 1 MG Tab PO SCH (08:50)
[2017-03-07] MEDS: Sertraline 50 MG Tab PO SCH (08:50)
[2017-03-07] MEDS: Cyanocobalamin (Vitamin B12) 1,000 MCG Tab PO SCH (08:50)
[2017-03-07] MEDS: Cholecalciferol (Vitamin D3) 1,000 Unit Tab PO SCH (08:50)
--- NOTE | 2017-03-07 10:02 | PCM.DCSUM1 ---
Discharge Summary - Hospital Course Brief History: This is a 77 yo elderly white female with past medical hx/o Impaired Vision/Hearing, HTN, DM2, Chronic Anemia, Chronic Hypokalemia, GERD/ Dyspepsia, Chronic Constipation, Chronic Back Pain/Left Hip Pain, Osteoporosis, OA/DJD, Alzheimer's Disease, Schizophrenia/Psychosis, JAKOB, On warfarin therapy for PE, Urinary Retention, and Vitamin B 12 Deficiency who was brought in from [facility] due to change in her demeanor. She was found to have UTI. - Discharge Data Discharge Date: 03/07/17 Discharge Disposition: DC/Tfer to [place] [address] Condition: Good - Discharge Diagnosis/Problem(s) (1) UTI (urinary tract infection) SNOMED Code(s): 89439921 ICD Code: N39.0 - URINARY TRACT INFECTION, SITE NOT SPECIFIED Status: Acute Qualifiers: Urinary tract infection type: site unspecified Hematuria presence: without hematuria Qualified Code(s): N39.0 - Urinary tract infection, site not specified (2) Supratherapeutic INR SNOMED Code(s): 132192773 ICD Code: R79.1 - ABNORMAL COAGULATION PROFILE Status: Acute (3) Episode of generalized weakness SNOMED Code(s): 73281343 ICD Code: R53.1 - WEAKNESS Status: Resolved (4) Altered mental status SNOMED Code(s): 879202013 ICD Code: R41.82 - ALTERED MENTAL STATUS, UNSPECIFIED Status: Resolved Qualifiers: Altered mental status type: transient alteration of awareness Qualified Code(s): R40.4 - Transient alteration of awareness (5) Renal insufficiency SNOMED Code(s): 093963757 ICD Code: N28.9 - DISORDER OF KIDNEY AND URETER, UNSPECIFIED Status: Resolved (6) Dementia SNOMED Code(s): 18078280 ICD Code: F03.90 - UNSPECIFIED DEMENTIA WITHOUT BEHAVIORAL DISTURBANCE Status: Chronic Qualifiers: Dementia type: Alzheimer's disease (7) Hypokalemia due to inadequate potassium intake SNOMED Code(s): 33255478 ICD Code: E87.6 - HYPOKALEMIA Status: Resolved (8) Pulmonary embolism SNOMED Code(s): 91897969 ICD Code: I26.99 - OTHER PULMONARY EMBOLISM WITHOUT ACUTE COR PULMONALE Status: Chronic Qualifiers: Pulmonary embolism type: other Chronicity: unspecified Acute cor pulmonale presence: without acute cor pulmonale Qualified Code(s): I26.99 - Other pulmonary embolism without acute cor pulmonale (9) Hypomagnesemia syndrome SNOMED Code(s): 441544123 ICD Code: E83.42 - HYPOMAGNESEMIA Status: Resolved - Patient Summary/Data Operative Procedure(s) Performed: None Complications: None Consults: Consultations 03/05/17 19:25 Consult to Case Management [CONS] Routine Consult to Bobbin Presser [CONS] Routine Consult to Spiritual Care [CONS] Routine OT Evaluation and Treatment [CONS] Routine PT Evaluation and Treatment [CONS] Routine Labs Pending at D/C: None Recommended Follow-up Testing/Procedures: INR check Wednesday Planned Operative Procedure(s) after DC: None Hospital Course: Patient was primarily admitted for altered mental status. She carried past a medical history of Alzheimer's disease. She was also on medications that contained anticholinergic as side effects. At the intermediate, she was observed off on her baseline demeanor. Her workup in emergency department, showed she had urinary tract infection. From there, she received initial treatment before she was sent to the floor for further management. On the floor, we continued her antibiotic along with supportive care. Patient responded well with treatment. Her hospital course was uncomplicated with the exception of electrolyte abnormality but we were quick to resolve it. The rest of her chronic medical illness remained stable during his admission. Patient appeared back at her baseline cognition and was ready for discharge. She was released with Macrobid 100 mg by mouth twice a day for 7 days to complete her treatment of uncomplicated UTI. Patient was advised to hold her dose of warfarin tonight and have her INR checked by Wednesday. On the day of discharge, she was further advised to come back or seek immediate care should her symptom persists or gets worse. Patient expressed understanding and in agreement with the plans as discussed above. All questions were answered. Dr. Hutton was called and updated regarding patient's discharge care plan. - Patient Instructions Diet: Usual Diet as Tolerated Activity: As Tolerated Driving: Do Not Drive Showering/Bathing: May Shower Notify Provider of: Fever, Increased Pain, Nausea and/or Vomiting Other/Special Instructions: - Please take all medications as directed. - Resume All home meds. - Hold your Warfarin dose tonight. - Recommend INR check Wednesday through your family doctor. - Call or follow up with your doctor right after discharge - Discharge Plan Prescriptions/Med Rec: Lactobac Cmb #3/Fos/Pantethine [Probiotic & Acidophilus] 1 each PO BID #14 capsule Nitrofurantoin Monohyd/M-Cryst [Macrobid 100 mg Capsule] 100 mg PO BID #14 capsule Home Medications: Home Meds Acetaminophen [Tylenol Extra Strength] 1,000 mg PO 17 03/15/15 [History] Potassium Chloride [Klor-Con] 20 meq PO BID 03/15/15 [History] metFORMIN [Glucophage] 1,000 mg PO BIDMEALS 03/15/15 [History] Aspirin [Alaina Chewable Aspirin] 81 mg PO DAILY 08/22/15 [History] Cholecalciferol (Vitamin D3) [Vitamin D3] 2,000 unit PO DAILY 08/22/15 [History] Cyanocobalamin (Vitamin B-12) [B-12] 1,000 mcg PO DAILY 08/22/15 [History] Fish Oil/[place]ovell-3 Fatty Acids [Fish Oil 1,000 MG] 1 each PO DAILY 08/22/15 [ History] Losartan/Hydrochlorothiazide [Losartan-HCTZ 50-12.5 MG] 1 each PO DAILY [History] Sertraline [Zoloft] 100 mg PO DAILY 08/22/15 [History] risperiDONE 1 mg PO BID 08/22/15 [History] traZODone 50 mg PO BEDTIME #30 tablet 08/26/15 [Rx] Hydrocodone/Acetaminophen [Evart 5-325] 1 each PO TID 03/05/17 [History] LORazepam [Ativan] 0.5 mg PO Q6H PRN 03/05/17 [History] Magnesium Hydroxide [Milk of Magnesia] 1,500 ml PO ASDIRECTED PRN 03/05/17 [ History] Rivastigmine [Exelon] 1 each TD DAILY 03/05/17 [History] Kyle Hose 1 applic TOP DAILY 03/05/17 [History] Warfarin [Coumadin] 3 mg PO ASDIRECTED 03/05/17 [History] Warfarin [Coumadin] 4.5 mg PO ASDIRECTED 03/05/17 [History] Memantine HCl [Namenda XR] 28 mg PO DAILY 03/06/17 [History] Lactobac Cmb #3/Fos/Pantethine [Probiotic & Acidophilus] 1 each PO BID #14 capsule 03/07/17 [Rx] Nitrofurantoin Monohyd/M-Cryst [Macrobid 100 mg Capsule] 100 mg PO BID #14 capsule 03/07/17 [Rx] Referrals: Maxx Hutton MD [Primary Care Provider] - (Please call and schedule a follow up apt. with Dr. Hutton on Mar.09 for a hospital follow up and also to have your INR checked. ) - Discharge Summary/Plan Comment DC Time >30 min.: Yes (45 mins) Discharge Summary/Plan Comment: Discharge back to the [place] - General Info Date of Service: 03/07/17 Admission Dx/Problem (Free Text: Admission Diagnosis/Problem Admission Diagnosis/Problem UTI, Urinary tract infectious disease Subjective Update: Follow Up Functional Status: Reports: Pain Controlled, Tolerating Diet, Urinating - Review of Systems General: Denies: Fever, Chills HEENT: Reports: No Symptoms Pulmonary: Denies: Shortness of Breath Cardiovascular: Denies: Chest Pain, Palpitations, Dyspnea on Exertion, Lightheadedness Gastrointestinal: Denies: Abdominal Pain, Nausea, Vomiting Genitourinary: Reports: No Symptoms Musculoskeletal: Reports: No Symptoms Skin: Denies: Cyanosis, Pallor, Diaphoresis, Rash Neurological: Reports: Confusion (Baseline Dementia), Gait Disturbance. Denies : Difficulty Walking, Weakness Psychiatric: Denies: Depression, Anxiety, Agitation, Hallucinations - Patient Data Vitals - Most Recent: Last Vital Signs Temp 36.9 C 03/07/17 08:43 Pulse 72 03/07/17 08:43 Resp 14 03/07/17 08:43 BP 115/75 03/07/17 08:48 Pulse Ox 93 L 03/07/17 08:43 Weight - Most Recent: 73.89 kg I&O - Last 24 hours: Intake & Output 03/06/17 03/07/17 03/07/17 22:59 06:59 14:59 Intake Total 1700 1784 Output Total 300 Balance 1700 1484 Lab Results - Last 24 hrs: Laboratory Results - last 24 hr 03/06/17 03/07/17 03/07/17 Range/Units 20:26 06:00 06:00 PT 43.8 H (8.0-13.0) SECONDS INR 3.70 Sodium 142 (136-145) mEq/L Potassium 4.2 (3.5-5.1) mEq/L Chloride 107 (98-107) mEq/L Carbon Dioxide 27 (21-32) mEq/L Anion Gap 12.2 (5-15) BUN 20 H (7-18) mg/dL Creatinine 1.0 (0.55-1.02) mg/dL Est Cr Clr Drug Dosing 46.77 mL/min Estimated GFR (MDRD) 54 (>60) mL/min BUN/Creatinine Ratio 20.0 H (14-18) Glucose 116 H (83-115) mg/dL POC Glucose 204 H (83-110) mg/dL Calcium 8.5 (8.5-10.1) mg/dL Magnesium 2.2 (1.8-2.4) mg/dl C-Reactive Protein 2.2 H* (<1.0) mg/dL 03/07/17 Range/Units 06:41 PT (8.0-13.0) SECONDS INR Sodium (136-145) mEq/L Potassium (3.5-5.1) mEq/L Chloride (98-107) mEq/L Carbon Dioxide (21-32) mEq/L Anion Gap (5-15) BUN (7-18) mg/dL Creatinine (0.55-1.02) mg/dL Est Cr Clr Drug Dosing mL/min Estimated GFR (MDRD) (>60) mL/min BUN/Creatinine Ratio (14-18) Glucose (83-115) mg/dL POC Glucose 119 H (83-110) mg/dL Calcium (8.5-10.1) mg/dL Magnesium (1.8-2.4) mg/dl C-Reactive Protein (<1.0) mg/dL Med Orders - Current: Current Medications Acetaminophen (Tylenol) 975 mg PO DAILY@1700 [facility] Last Admin: 03/06/17 16:09 Dose: 975 mg Acetaminophen (Tylenol) 650 mg PO Q4H PRN PRN Reason: Pain (Mild 1-3)/fever Hydrocodone Bitart/Acetaminophen (Evart 325-5 Mg) 1 tab PO TID [facility] Last Admin: 03/07/17 08:49 Dose: 1 tab Albuterol (Proventil Neb Soln) 2.5 mg NEB Q2H PRN PRN Reason: Shortness Of Breath/wheezing Aspirin (Halfprin) 81 mg PO DAILY [facility] Last Admin: 03/07/17 08:49 Dose: 81 mg Bisacodyl (Dulcolax) 5 mg PO DAILY PRN PRN Reason: Constipation Cholecalciferol (Vitamin D3) 2,000 units PO DAILY [facility] Last Admin: 03/07/17 08:50 Dose: 2,000 units Cyanocobalamin (Vitamin B12) 1,000 mcg PO DAILY [facility] Last Admin: 03/07/17 08:50 Dose: 1,000 mcg Dextrose/Water (Dextrose 50% In Water) 50 ml IVPUSH ASDIRECTED PRN PRN Reason: Hypoglycemia Fish Oil (Fish Oil) 1 gm PO DAILY [facility] Last Admin: 03/07/17 08:49 Dose: 1 gm Hydralazine HCl (Apresoline) 10 mg IVPUSH Q4H PRN PRN Reason: Hypertension Hydrochlorothiazide (Hydrochlorothiazide) 12.5 mg PO DAILY [facility] Last Admin: 03/07/17 08:49 Dose: 12.5 mg Hydromorphone HCl (Dilaudid) 0.25 mg IVPUSH Q2H PRN PRN Reason: Pain (severe 7-10) Promethazine HCl 12.5 mg/ (Sodium Chloride) 50.5 mls @ 100 mls/hr IV Q6H PRN PRN Reason: Nausea/Vomiting Ceftriaxone Sodium 1 gm/ (Sodium Chloride) 100 mls @ 200 mls/hr IV Q24H [facility] Last Admin: 03/06/17 16:09 Dose: 200 mls/hr Sodium Chloride (Normal Saline) 1,000 mls @ 100 mls/hr IV ASDIRECTED [facility] Last Admin: 03/06/17 23:07 Dose: 100 mls/hr Insulin Aspart (Novolog) 0 unit SUBCUT BID@0700,2100 [facility] PRN Reason: Protocol Last Admin: 03/07/17 08:47 Dose: Not Given Lorazepam (Ativan) 0.5 mg PO Q6H PRN PRN Reason: Anxiety Lorazepam (Ativan) 2 mg IVPUSH Q4H PRN PRN Reason: Seizures Lorazepam (Ativan) 0.25 mg IV Q6H PRN PRN Reason: Anxiety Losartan Potassium (Cozaar) 50 mg PO DAILY [facility] Last Admin: 03/07/17 08:48 Dose: 50 mg Magnesium Hydroxide (Milk Of Magnesia) 15 ml PO Q8H PRN PRN Reason: Constipation Last Admin: 03/07/17 06:36 Dose: 15 ml Magnesium Sulfate (Pharmacy To Dose - Magnesium Replacement) 1 dose .XX ASDIRECTED [facility] Memantine (Namenda) 28 mg PO DAILY [facility] Metformin HCl (Glucophage) 1,000 mg PO BIDMEALS [facility] Last Admin: 03/07/17 08:46 Dose: 1,000 mg Metoprolol Tartrate (Lopressor) 5 mg IVPUSH Q4H PRN PRN Reason: Tachycardia Non-Formulary Medication (Rivastigmine [Exelon]) 1 each TD DAILY [facility] Ondansetron HCl (Zofran) 4 mg IV Q6H PRN PRN Reason: Nausea/Vomiting Polyethylene Glycol (Miralax) 17 gm PO DAILY PRN PRN Reason: Constipation Potassium Chloride (Klor-Con M20) 20 meq PO BIDMEALS [facility] Last Admin: 03/07/17 06:36 Dose: 20 meq Potassium Chloride (Pharmacy To Dose - Potassium Replacement) 1 dose .XX ASDIRECTED [facility] Risperidone (Risperidal) 1 mg PO BID [facility] Last Admin: 03/07/17 08:50 Dose: 1 mg Senna/Docusate Sodium (Senna Plus) 1 tab PO BID PRN PRN Reason: Constipation Sertraline HCl (Zoloft) 100 mg PO DAILY [facility] Last Admin: 03/07/17 08:50 Dose: 100 mg Sodium Chloride (Saline Flush) 10 ml FLUSH ASDIRECTED PRN PRN Reason: Keep Vein Open Last Admin: 03/05/17 16:03 Dose: 10 ml Trazodone HCl (Trazodone) 50 mg PO BEDTIME [facility] Last Admin: 03/06/17 21:43 Dose: 50 mg Warfarin Sodium (Pharmacy To Dose - Warfarin) 1 dose .XX ASDIRECTED [facility] Warfarin Sodium (Coumadin) 4.5 mg PO MoFr@1800 [facility] Last Admin: 03/05/17 22:09 Dose: 4.5 mg Warfarin Sodium (Coumadin) 3 mg PO SUTUWETHSA [facility] Last Admin: 03/06/17 18:27 Dose: 3 mg Discontinued Medications Diphtheria/Tetanus/Acell Pertussis (Adacel) 0.5 ml IM .ONCE ONE Stop: 03/05/17 18:26 Sodium Chloride (Normal Saline) 1,000 mls @ 100 mls/hr IV ASDIRECTED [facility] Last Admin: 03/06/17 01:49 Dose: 125 mls/hr Ceftriaxone Sodium 2 gm/ (Sodium Chloride) 100 mls @ 200 mls/hr IV ONETIME ONE Stop: 03/05/17 17:28 Last Admin: 03/05/17 17:10 Dose: 200 mls/hr Magnesium Sulfate 2 gm/ Premix 50 mls @ 25 mls/hr IV ONETIME ONE Stop: 03/06/17 19:29 Last Admin: 03/06/17 17:37 Dose: 25 mls/hr Insulin Aspart (Novolog) 0 unit SUBCUT ASDIRECTED [place] PRN Reason: Protocol Insulin Aspart (Novolog) 0 unit SUBCUT BID [facility] PRN Reason: Protocol Last Admin: 03/06/17 09:20 Dose: Not Given Magnesium Hydroxide (Milk Of Magnesia) ml PO ASDIRECTED PRN PRN Reason: Constipation Memantine (Namenda) 28 mg PO DAILY [facility] Warfarin Sodium (Coumadin) 3 mg PO ASDIRECTED [facility] Warfarin Sodium (Coumadin) 4.5 mg PO ASDIRECTED [facility] Warfarin Sodium (Coumadin) 3 mg PO SUTUWETHSA [facility] Last Admin: 03/06/17 18:51 Dose: Not Given - Exam General: Reports: Alert, Cooperative, No Acute Distress HEENT: Reports: Pupils Equal, Pupils Reactive, EOMI, Mucous Membr. Moist/[place] Neck: Reports: Supple, Trachea Midline, No JVD Lungs: Reports: Clear to Auscultation, Normal Respiratory Effort Cardiovascular: Reports: Regular Rate, Regular Rhythm GI/Abdominal Exam: Normal Bowel Sounds, Soft, Non-Tender, No Organomegaly, No Distention (Female) Exam: Deferred Rectal (Female) Exam: Deferred Back Exam: Reports: Normal Inspection, Decreased Range of Motion Extremities: Normal Inspection, Normal Range of Motion, Non-Tender, No Pedal Edema Skin: Reports: Warm, Dry, Intact Neurological: Reports: No New Focal Deficit Psy/Mental Status: Reports: Alert, Normal Mood. Denies: Normal Affect *Q Meaningful Use (DIS) - VTE *Q VTE Criteria *Q: - Stroke *Q Stroke Criteria *Q: - AMI *Q AMI Criteria *Q:
[2017-03-07 12:31] VITALS: BP 114/52
--- NOTE | 2017-03-07 18:06 | CR ---
Chest: Portable view of the chest was obtained. Comparison: Prior chest x-ray of 08/22/15. Heart size and mediastinum are within normal limits for portable technique. Lungs are clear. Scattered degenerative spurring is noted within the spine. Impression: 1. Nothing acute is appreciated on portable chest x-ray. Diagnostic code #2
== END 2017-03-07 15:20 | DRG 690 ==
LOC: JD.ED 15:13 → UNDOADMIN 17:26 → JD.MS 17:26
PROVIDERS: ADMIT Internal Medicine; ATTEND Internal Medicine
DX: N39.0 Urinary tract infection, site not specified (principal); R41.82 Altered mental status, unspecified; R53.1 Weakness; N28.9 Disorder of kidney and ureter, unspecified; E83.42 Hypomagnesemia; R79.1 Abnormal coagulation profile; Z86.711 Personal history of pulmonary embolism; Z79.01 Long term (current) use of anticoagulants; H91.90 Unspecified hearing loss, unspecified ear; H54.7 Unspecified visual loss; I10 Essential (primary) hypertension; E11.9 Type 2 diabetes mellitus without complications; Z79.84 Long term (current) use of oral hypoglycemic drugs; D64.9 Anemia, unspecified; E87.6 Hypokalemia; K21.9 Gastro-esophageal reflux disease without esophagitis; K59.09 Other constipation; M16.0 Bilateral primary osteoarthritis of hip; G89.29 Other chronic pain; M54.5 Low back pain; G30.9 Alzheimer's disease, unspecified; F02.80 Dementia in other diseases classified elsewhere, unspecified severity, without behavioral disturbance, psychotic disturbance, mood disturbance, and anxiety; E53.8 Deficiency of other specified B group vitamins; F20.9 Schizophrenia, unspecified; G31.84 Mild cognitive impairment of uncertain or unknown etiology; Z66 Do not resuscitate; F41.1 Generalized anxiety disorder; Z88.8 Allergy status to other drugs, medicaments and biological substances; Z79.82 Long term (current) use of aspirin; Z79.899 Other long term (current) drug therapy
CPT/HCPCS: 36415; 70450; 71010; 80053; 81001; 84484; 85025; 85610; 87040 ×2; 87086; 87088; 87186; 93005; 96361; 96365; 99285; J0696; J7030; J7040; J7050; P9612; 80048; 82306; 82962; 83735; 84439; 84443; 86140; 87641; 90715; 99223; 99232; 99239; A9270-GY; J1815-GY; J3475

== ENCOUNTER 2017-07-04 14:04 | Emergency (ER) | payer MEDICARE, BC, MEDICAID ==
[2017-07-04 14:14] VITALS: BP 86/41
[2017-07-04] MEDS ORDERED: Sodium Chloride 0.9% 10 ML Syringe FLUSH PRN (14:25)
--- NOTE | 2017-07-04 14:46 | EDM.PDOC ---
ED HPI GENERAL MEDICAL PROBLEM - General Chief Complaint: Gastrointestinal Problem Stated Complaint: [facility] Time Seen by Provider: 07/04/17 14:25 Source of Information: Reports: Patient, EMS, Half-Way Records, RN Notes Reviewed - History of Present Illness INITIAL COMMENTS - FREE TEXT/NARRATIVE: 77 year old female is brought to ED after acute onset of rectal bleeding at [place] about 1 hr ago. She was actually in the shower when she had large amount of rectal bleeding. She is on Coumadin and aspirin, Hx of prior PE. Hx dementia. She does deny chest pain or difficulty breathing. Denies abd pain, nausea or vomiting. No prior bleeding reported. Comes in with low BP, systolic BP 85 on arrival. - Related Data Allergies Allergy/AdvReac Type Severity Reaction Status Date / Time meperidine HCl [From Demerol] Allergy Cannot Verified 03/15/15 22:05 Remember Home Meds: Home Meds Potassium Chloride [Klor-Con] 20 meq PO BID 03/15/15 [History] metFORMIN [Glucophage] 1,000 mg PO BIDMEALS 03/15/15 [History] Sertraline [Zoloft] 100 mg PO DAILY 08/22/15 [History] risperiDONE 1 mg PO BID 08/22/15 [History] traZODone 50 mg PO BEDTIME #30 tablet 08/26/15 [Rx] Hydrocodone/Acetaminophen [Americus 5-325] 1 each PO TID 03/05/17 [History] Magnesium Hydroxide [Milk of Magnesia] 1,500 ml PO ASDIRECTED PRN 03/05/17 [ History] Rivastigmine [Exelon] 1 each TD DAILY 03/05/17 [History] Kyle Hose 1 applic TOP DAILY 03/05/17 [History] Warfarin [Coumadin] 3 mg PO ASDIRECTED 03/05/17 [History] Warfarin [Coumadin] 4.5 mg PO ASDIRECTED 03/05/17 [History] Memantine HCl [Namenda XR] 28 mg PO DAILY 03/06/17 [History] Losartan [Cozaar] 25 mg PO DAILY 07/04/17 [History] Past Medical History HEENT History: Reports: Hard of Hearing, Impaired Vision Cardiovascular History: Reports: Hypertension, Other (See Below) Other Cardiovascular History: hypokalemis Gastrointestinal History: Reports: GERD Other Gastrointestinal History: dyspepsia Genitourinary History: Reports: UTI, Recurrent 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: Reports: Musculoskeletal History: Reports: Back Pain, Chronic, Osteoporosis, Osteoarthritis Other Musculoskeletal History: bilateral hip osteoarthritis, chronic low back pain Neurological History: Reports: Other (See Below) Other Neuro History: mild cognitive impairment Psychiatric History: Reports: Alzheimers Disease, Dementia, Schizophrenia Other Psychiatric History: generalized anxiety disorder Endocrine/Metabolic History: Reports: Diabetes, Type II Hematologic History: Reports: Anemia, B12 Deficiency Oncologic (Cancer) History: Reports: Other (See Below) Other Oncologic History: malignant meoplasm of ovary - Infectious Disease History Infectious Disease History: Reports: Other (See Below) Other Infectious Disease History: unable to assess pt. is confused. - Past Surgical History Female Surgical History: Reports: Hysterectomy Social & Family History - Family History Family Medical History: Unobtainable - Tobacco Use Smoking Status *Q: Unknown Ever Smoked Used Tobacco, but Quit: Yes Month Tobacco Last Used: unknown Second Hand Smoke Exposure: No - Caffeine Use Caffeine Use: Reports: Other Other Caffeine Use: unable to access - Recreational Drug Use Recreational Drug Use: No ED ROS GENERAL - Review of Systems Review Of Systems: See Below Constitutional: Denies: Fever, Chills, Diaphoresis HEENT: Denies: Throat Pain Respiratory: Denies: Shortness of Breath Cardiovascular: Denies: Chest Pain GI/Abdominal: Reports: Hematochezia. Denies: Abdominal Pain, Nausea, Vomiting Musculoskeletal: Reports: No Symptoms Skin: Reports: No Symptoms Neurological: Reports: Confusion (chronic) ED EXAM, GI/ABD - Physical Exam Exam: See Below General Appearance: Alert, No Apparent Distress Eyes: Bilateral: Normal Appearance Throat/Mouth: Normal Inspection, Normal Oropharynx Head: Atraumatic. No: Facial Swelling Neck: Supple Respiratory/Chest: No Respiratory Distress, Lungs Clear, Normal Breath Sounds Cardiovascular: Regular Rate, Rhythm GI/Abdominal Exam: Soft, Non-Tender. No: Guarding Rectal (Female) Exam: Bloody Stool Extremities: Normal Inspection. No: Pedal Edema, Leg Pain Neurological: Alert, No Motor/Sensory Deficits, Other (pt looks and acts) Skin Exam: Warm, Dry, Normal Color Course - Vital Signs Last Recorded V/S: Last Vital Signs Temp 97.2 F 07/04/17 14:07 Pulse 95 07/04/17 14:07 Resp 20 07/04/17 14:07 BP 86/41 L 07/04/17 14:07 Pulse Ox - Orders/Labs/Meds Orders: Active Orders 24 hr Category Date Time Status EKG 12 Lead [EKG Documentation Completion] [RC] STAT Care 07/04/17 14:25 Active Insert Velázquez Catheter [Insert Urinary Catheter] [OM.PC] Care 07/04/17 17:00 Ordered Q24H Peripheral IV Care [RC] . DIRECTED Care 07/04/17 14:26 Active Urinary Catheter Assessment [RC] ASDIRECTED Care 07/04/17 16:51 Active ANTIBODY IDENTIFICATION [BBK] Stat Lab 07/04/17 14:15 Results FRESH FROZEN PLASMA [BBK] Stat Lab 07/04/17 14:15 Results PACKED CELLS [RED BLOOD CELLS LP] [BBK] Stat Lab 07/04/17 14:15 Results PATIENT RETYPE [BBK] Stat Lab 07/04/17 14:15 Results TYPE AND SCREEN [BBK] Stat Lab 07/04/17 14:15 Results Sodium Chloride 0.9% [Normal Saline] 1,000 ml Med 07/04/17 16:29 Active IV ONETIME Sodium Chloride 0.9% [Saline Flush] Med 07/04/17 14:25 Active 10 ml FLUSH ASDIRECTED PRN Peripheral IV Insertion Adult [OM.PC] Stat Oth 07/04/17 14:26 Ordered Transfuse PRBC [Transfuse Red Blood Cells] [COMM] Stat Oth 07/04/17 15:32 Ordered Medication Orders Sodium Chloride (Normal Saline) 1,000 mls @ 999 mls/hr IV ONETIME ONE Stop: 07/04/17 17:29 Last Admin: 07/04/17 16:37 Dose: 999 mls/hr Sodium Chloride (Saline Flush) 10 ml FLUSH ASDIRECTED PRN PRN Reason: Keep Vein Open Last Admin: 07/04/17 14:41 Dose: 10 ml Labs: Laboratory Tests 07/04/17 07/04/17 07/04/17 Range/Units 14:15 14:15 14:15 WBC 12.88 H (3.98-10.04) K/mm3 RBC 2.95 L (3.98-5.22) M/mm3 Hgb 8.7 L (11.2-15.7) gm/L Hct 28.1 L (34.1-44.9) % MCV 95.3 H (79.4-94.8) fl MCH 29.5 (25.6-32.2) pg MCHC 31.0 L (32.2-35.5) g/dl RDW Std Deviation 46.8 H (36.4-46.3) fL Plt Count 284 (182-369) K/mm3 MPV 9.6 (9.4-12.3) fl Neut % (Auto) 83.1 H (34.0-71.1) % Lymph % (Auto) 10.4 L (19.3-51.7) % Freestone % (Auto) 5.3 (4.7-12.5) % Eos % (Auto) 0.1 L (0.7-5.8) Baso % (Auto) 0.3 (0.1-1.2) % Neut # (Auto) 10.71 H (1.56-6.13) K/mm3 Lymph # (Auto) 1.34 (1.18-3.74) K/mm3 Freestone # (Auto) 0.68 H (0.24-0.36) K/mm3 Eos # (Auto) 0.01 L (0.04-0.36) K/mm3 Baso # (Auto) 0.04 (0.01-0.08) K/mm3 PT (8.0-13.0) SECONDS INR APTT (22-36) SECONDS Sodium 144 (136-145) mEq/L Potassium 5.4 H (3.5-5.1) mEq/L Chloride 109 H (98-107) mEq/L Carbon Dioxide 21 (21-32) mEq/L Anion Gap 19.4 H (5-15) BUN 35 H (7-18) mg/dL Creatinine 1.6 H (0.55-1.02) mg/dL Est Cr Clr Drug Dosing TNP Estimated GFR (MDRD) 31 (>60) mL/min BUN/Creatinine Ratio 21.9 H (14-18) Glucose 194 H (83-115) mg/dL Calcium 8.9 (8.5-10.1) mg/dL Total Bilirubin 0.1 L (0.2-1.0) mg/dL AST 14 L (15-37) U/L ALT 20 (14-59) U/L Alkaline Phosphatase 41 L (46-116) U/L Total Protein 5.7 L (6.4-8.2) g/dl Albumin 2.8 L (3.4-5.0) g/dl Globulin 2.9 gm/dL Albumin/Globulin Ratio 1.0 (1-2) Blood Type A NEGATIVE Gel Antibody Screen Positive Crossmatch See Detail 07/04/17 Range/Units 14:15 WBC (3.98-10.04) K/mm3 RBC (3.98-5.22) M/mm3 Hgb (11.2-15.7) gm/L Hct (34.1-44.9) % MCV (79.4-94.8) fl MCH (25.6-32.2) pg MCHC (32.2-35.5) g/dl RDW Std Deviation (36.4-46.3) fL Plt Count (182-369) K/mm3 MPV (9.4-12.3) fl Neut % (Auto) (34.0-71.1) % Lymph % (Auto) (19.3-51.7) % Freestone % (Auto) (4.7-12.5) % Eos % (Auto) (0.7-5.8) Baso % (Auto) (0.1-1.2) % Neut # (Auto) (1.56-6.13) K/mm3 Lymph # (Auto) (1.18-3.74) K/mm3 Freestone # (Auto) (0.24-0.36) K/mm3 Eos # (Auto) (0.04-0.36) K/mm3 Baso # (Auto) (0.01-0.08) K/mm3 PT 108.3 H* (8.0-13.0) SECONDS INR 8.66 H* APTT 46 H (22-36) SECONDS Sodium (136-145) mEq/L Potassium (3.5-5.1) mEq/L Chloride (98-107) mEq/L Carbon Dioxide (21-32) mEq/L Anion Gap (5-15) BUN (7-18) mg/dL Creatinine (0.55-1.02) mg/dL Est Cr Clr Drug Dosing Estimated GFR (MDRD) (>60) mL/min BUN/Creatinine Ratio (14-18) Glucose (83-115) mg/dL Calcium (8.5-10.1) mg/dL Total Bilirubin (0.2-1.0) mg/dL AST (15-37) U/L ALT (14-59) U/L Alkaline Phosphatase (46-116) U/L Total Protein (6.4-8.2) g/dl Albumin (3.4-5.0) g/dl Globulin gm/dL Albumin/Globulin Ratio (1-2) Blood Type Gel Antibody Screen Crossmatch Meds: Medications Generic Name Dose Route Start Last Admin Trade Name Freq PRN Reason Stop Dose Admin Sodium Chloride 1,000 mls @ 999 mls/hr 07/04/17 16:29 07/04/17 16:37 Normal Saline IV 07/04/17 17:29 999 mls/hr ONETIME ONE Administration Sodium Chloride 10 ml 07/04/17 14:25 07/04/17 14:41 Saline Flush FLUSH 10 ml ASDIRECTED PRN Administration Keep Vein Open Discontinued Medications Generic Name Dose Route Start Last Admin Trade Name Freq PRN Reason Stop Dose Admin Phytonadione 5 mg/ Sodium 50.5 mls @ 100 mls/hr 07/04/17 15:22 07/04/17 15:39 Chloride IV 07/04/17 15:52 100 mls/hr NOW ONE Administration Sodium Chloride 1,000 mls @ 999 mls/hr 07/04/17 16:12 07/04/17 16:13 Normal Saline IV 07/04/17 17:12 999 mls/hr ONETIME ONE Administration - Re-Assessments/Exams Free Text/Narrative Re-Assessment/Exam: 07/04/17 15:30. INR came back at 8.3 range, ProTime 103. She is on Coumadin as documented. Have given 5 of vitamin K IV, I had requested lab do a type and screenhave now put in ordersfor transfusion of 2 units packed RBCs. I realize that with the hemoglobin of 8.7 she doesn't meet transfusion criteria per policy but clinically this is the appropriate thing to do for her. Her pressure coming in was at 85 systolic, currently 89. Heart rate running in the 90s. She has lost significant blood volume, she is not young with multiple underlying medical problems and could quickly decompensate if she were to have further significant hemorrhage. I did discuss this with Dr. Banks, our Hospitalist on duty who agrees we should proceed with transfusion now rather than wait for her to further decompensate. Dr Roberson General Surgeon on-call also has been consulted. She will be admitted to ICU. 07/04/17 16:00. Lab was notified me, she has 2 antibodies that make transfusion at this time impossible. it is Wednesday afternoon. They will not be able to send blood to [place] for antibody clarification until tomorrow morning which means that we would not have blood available until Wednesday 2 days from now more or less at the earliest. Dr. Banks, our hospitalist and myself are not comfortable with that situation. If she were to have further major hemorrhage she will . I tried to reach her . He does not answer. He lives 80 miles away from here. I did reach her son Roge that lives at [facility]. HE is going to try locate his father and then they will get back to us regarding whether to keep her here for supportive care and hope she doesn't have further major hemorrhage or transfer her to a [facility] so she can get blood on a more expedient basis as clinically indicated or needed. 07/04/17 17:00. , Reinaldo Deluna has called giving permission for transfer to [facility]. Have discussed with Dr Zhu [facility]' ED who does accept patient in transfer. No further bleeding, blood pressure continuing to run in the 80's, one or 2 readings up to 100 systolic and than a 76/40 a short time ago, patient sleeping at that time. heart rate continues to run in the 90's to low 100's. Departure - Departure Time of Disposition: 15:41 Disposition: Admitted As Inpatient 66 Condition: Serious Clinical Impression: Rectal bleeding, Anemia Hypotension Qualifiers: Hypotension type: other hypotension type Qualified Code(s): I95.89 - Other hypotension - Discharge Information Referrals: PCP,Unknown [Primary Care Provider] - Forms: ED Department Discharge ED Communication - Discussed Case With (1) Discussed Case With (1): Admitting Provider (Dr Banks, decision to admit status at about 15:35) - My Orders Last 24 Hours: My Active Orders 07/04/17 14:15 ANTIBODY IDENTIFICATION [BBK] Stat FRESH FROZEN PLASMA [BBK] Stat PACKED CELLS [RED BLOOD CELLS LP] [BBK] Stat PATIENT RETYPE [BBK] Stat TYPE AND SCREEN [BBK] Stat 07/04/17 14:25 EKG 12 Lead [EKG Documentation Completion] [RC] STAT Sodium Chloride 0.9% [Saline Flush] 10 ml FLUSH ASDIRECTED PRN 07/04/17 14:26 Peripheral IV Care [RC] . DIRECTED Peripheral IV Insertion Adult [OM.PC] Stat 07/04/17 15:32 Transfuse PRBC [Transfuse Red Blood Cells] [COMM] Stat 07/04/17 16:29 Sodium Chloride 0.9% [Normal Saline] 1,000 ml IV ONETIME 07/04/17 16:51 Urinary Catheter Assessment [RC] ASDIRECTED 07/04/17 17:00 Insert Velázquez Catheter [Insert Urinary Catheter] [OM.PC] Q24H - Assessment/Plan Last 24 Hours: My Active Orders 07/04/17 14:15 ANTIBODY IDENTIFICATION [BBK] Stat FRESH FROZEN PLASMA [BBK] Stat PACKED CELLS [RED BLOOD CELLS LP] [BBK] Stat PATIENT RETYPE [BBK] Stat TYPE AND SCREEN [BBK] Stat 07/04/17 14:25 EKG 12 Lead [EKG Documentation Completion] [RC] STAT Sodium Chloride 0.9% [Saline Flush] 10 ml FLUSH ASDIRECTED PRN 07/04/17 14:26 Peripheral IV Care [RC] . DIRECTED Peripheral IV Insertion Adult [OM.PC] Stat 07/04/17 15:32 Transfuse PRBC [Transfuse Red Blood Cells] [COMM] Stat 07/04/17 16:29 Sodium Chloride 0.9% [Normal Saline] 1,000 ml IV ONETIME 07/04/17 16:51 Urinary Catheter Assessment [RC] ASDIRECTED 07/04/17 17:00 Insert Velázquez Catheter [Insert Urinary Catheter] [OM.PC] Q24H
[2017-07-04] MEDS ORDERED: Phytonadione 5 MG in Sodium Chloride 0.9% 50 ML IV ONE (15:22)
[2017-07-04] MEDS ORDERED: Sodium Chloride 0.9% 1,000 ML IV ONE ×2 (16:12→16:29)
== END 2017-07-04 17:30 ==
LOC: JD.ED 14:04
DX: K62.5 Hemorrhage of anus and rectum (principal); D64.9 Anemia, unspecified; I95.89 Other hypotension; I10 Essential (primary) hypertension; E11.9 Type 2 diabetes mellitus without complications; G30.9 Alzheimer's disease, unspecified; F02.80 Dementia in other diseases classified elsewhere, unspecified severity, without behavioral disturbance, psychotic disturbance, mood disturbance, and anxiety; Z79.82 Long term (current) use of aspirin; Z79.01 Long term (current) use of anticoagulants; Z79.899 Other long term (current) drug therapy; Z88.5 Allergy status to narcotic agent; Z87.891 Personal history of nicotine dependence
CPT/HCPCS: 36415; 51702; 80053; 85025; 85610; 85730; 86850; 86870; 86900; 86901; 93005; 96360; 96365; 99285; J3430; J7040; J7050

== ENCOUNTER 2018-01-05 16:50 | Emergency (ER) | payer MEDICARE, MEDICAID ==
[2018-01-05 17:30] VITALS: BP 155/76
[2018-01-05] MEDS ORDERED: Acetaminophen 325 MG Tab PO ONE (18:51)
--- NOTE | 2018-01-05 19:14 | EDM.PDOC ---
ED HPI GENERAL MEDICAL PROBLEM - General Chief Complaint: General Stated Complaint: FELL THIS MORNING Time Seen by Provider: 01/05/18 17:48 Source of Information: Reports: Patient, RN Notes Reviewed - History of Present Illness INITIAL COMMENTS - FREE TEXT/NARRATIVE: 77 yr old female fell at the [facility] yesterday. Has been complaining of R knee and R chest pain. She has been standing and transferring OK. No Nolen. NO difficulty breathing. No vomiting. Hx fairly vague at time of my exam. Right Thoracic Pain Score (Numeric/FACES): 6 - Related Data Allergies Allergy/AdvReac Type Severity Reaction Status Date / Time meperidine HCl [From Demerol] Allergy Cannot Verified 01/05/18 17:30 Remember Home Meds: Home Meds Potassium Chloride [Klor-Con] 20 meq PO BID 03/15/15 [History] metFORMIN [Glucophage] 1,000 mg PO BIDMEALS 03/15/15 [History] Sertraline [Zoloft] 100 mg PO DAILY 08/22/15 [History] risperiDONE 1 mg PO BID 08/22/15 [History] traZODone 50 mg PO BEDTIME #30 tablet 08/26/15 [Rx] Hydrocodone/Acetaminophen [Home 5-325] 1 each PO TID 03/05/17 [History] Magnesium Hydroxide [Milk of Magnesia] 1,500 ml PO ASDIRECTED PRN 03/05/17 [ History] Rivastigmine [Exelon] 1 each TD DAILY 03/05/17 [History] Memantine HCl [Namenda XR] 28 mg PO DAILY 03/06/17 [History] Losartan [Cozaar] 25 mg PO DAILY 07/04/17 [History] Acetaminophen [Pain Reliever] 1,000 mg PO DAILY 01/05/18 [History] Alum Hydrox/Mag Hydrox/Simeth [Maalox Advanced] 10 ml PO DAILY 01/05/18 [History ] Aspirin [Adult Aspirin] 81 mg PO DAILY 01/05/18 [History] Cholecalciferol (Vitamin D3) [Vitamin D3] 2,000 unit PO DAILY 01/05/18 [History] Cyanocobalamin (Vitamin B-12) [Vitamin B-12] 1,000 mcg PO DAILY 01/05/18 [ History] Fish Oil/Rhodhiss-3 Fatty Acids [Fish Oil 1,000 MG] 1,000 mg PO DAILY 01/05/18 [ History] Loperamide [Imodium] 4 mg PO DAILY PRN 01/05/18 [History] Omeprazole 20 mg PO DAILY 01/05/18 [History] Past Medical History HEENT History: Reports: Hard of Hearing, Impaired Vision Cardiovascular History: Reports: Hypertension, Other (See Below) Other Cardiovascular History: hypokalemis Respiratory History: Reports: PE Gastrointestinal History: Reports: GERD Other Gastrointestinal History: dyspepsia Genitourinary History: Reports: UTI, Recurrent 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: Musculoskeletal History: Reports: Back Pain, Chronic, Osteoporosis, Osteoarthritis Other Musculoskeletal History: bilateral hip osteoarthritis, chronic low back pain Neurological History: Reports: Other (See Below) Other Neuro History: mild cognitive impairment Psychiatric History: Reports: Alzheimers Disease, Dementia, Schizophrenia Other Psychiatric History: generalized anxiety disorder Endocrine/Metabolic History: Reports: Diabetes, Type II Hematologic History: Reports: Anemia, B12 Deficiency Oncologic (Cancer) History: Reports: Other (See Below) Other Oncologic History: malignant meoplasm of ovary - Infectious Disease History Infectious Disease History: Reports: Other (See Below) Other Infectious Disease History: unable to assess pt. is confused. - Past Surgical History Female Surgical History: Reports: Hysterectomy Social & Family History - Family History Family Medical History: Unobtainable - Tobacco Use Smoking Status *Q: Former Smoker Used Tobacco, but Quit: Yes Month/Year Tobacco Last Used: many years - Caffeine Use Caffeine Use: Reports: Coffee Other Caffeine Use: unable to access - Recreational Drug Use Recreational Drug Use: No ED ROS GENERAL - Review of Systems Review Of Systems: See Below Constitutional: Denies: Fever, Chills HEENT: Denies: Ear Discharge, Nosebleed Respiratory: Denies: Shortness of Breath, Pleuritic Chest Pain, Cough Cardiovascular: Reports: Chest Pain ( R lateral chest) GI/Abdominal: Denies: Nausea, Vomiting Musculoskeletal: Reports: Joint Pain (R knee). Denies: Neck Pain Skin: Denies: Bruising Neurological: Denies: Headache, Numbness, Tingling, Weakness ED EXAM, GENERAL - Physical Exam Exam: See Below General Appearance: Alert, No Apparent Distress Eye Exam: Bilateral Eye: PERRL Ears: Normal External Exam, Normal Canal Nose: Normal Inspection Throat/Mouth: Normal Inspection Head: Atraumatic. No: Facial Swelling, Facial Tenderness Neck: Supple Respiratory/Chest: No Respiratory Distress, Lungs Clear, Normal Breath Sounds, Other (mild tenderness R lateral chest wall, no visible swelling or bruising) Cardiovascular: Regular Rate, Rhythm GI/Abdominal: Soft, Non-Tender Back Exam: No: Paraspinal Tenderness, Vertebral Tenderness Extremities: Joint Swelling (mild swelling both knees, no bruising, Tender R lateral and medial knee, mild pain with motion, pelvis hips nontender) Neurological: Alert, No Motor/Sensory Deficits Skin Exam: Warm, Dry, Normal Color Course - Vital Signs Last Recorded V/S: Last Vital Signs Temp 98.0 F 01/05/18 19:34 Pulse 70 01/05/18 19:34 Resp 18 01/05/18 19:34 BP 155/76 H 01/05/18 17:28 Pulse Ox 94 L 01/05/18 19:34 - Orders/Labs/Meds Meds: Medications Discontinued Medications Generic Name Dose Route Start Last Admin Trade Name Freq PRN Reason Stop Dose Admin Acetaminophen 650 mg 01/05/18 18:51 01/05/18 18:59 Tylenol PO 01/05/18 18:52 650 mg NOW ONE Administration - Re-Assessments/Exams Free Text/Narrative Re-Assessment/Exam: 01/15/18 12:45 X rays are neg for fx, discharge instr. as documented. Departure - Departure Time of Disposition: 19:10 Disposition: Home, Self-Care 01 Condition: Fair Clinical Impression: Fall Qualifiers: Encounter type: initial encounter Qualified Code(s): W19.XXXA - Unspecified fall, initial encounter Contusion, knee Qualifiers: Encounter type: initial encounter Laterality: right Qualified Code(s): S80.01XA - Contusion of right knee, initial encounter Chest wall contusion Qualifiers: Encounter type: initial encounter Laterality: right Qualified Code(s): S20.211A - Contusion of right front wall of thorax, initial encounter - Discharge Information Instructions: Contusion, Chest Contusion, Adult, [id number] Referrals: Maxx Hutton MD [Primary Care Provider] - Forms: ED Department Discharge Additional Instructions: no fracture identified while here in the ED this evening, tylenol 3 to 4 times daily if needed for pain, 650 mg 3 to 4 times daily prn pain would be appropriate if there is not already a standing tylenol order. Continue previous care. Fall precautions. Call or see her medical provider as needed.
--- NOTE | 2018-01-09 12:18 | CR ---
Right knee: Four views of the right knee were obtained. Comparison: No previous study. Well-corticated bony densities are identified off the posterior knee which are likely dystrophic from previous surgery. Additional calcifications are seen anterior and above the right knee also felt to be dystrophic from prior surgery. Knee prosthesis is noted. No acute bony abnormality is appreciated. Vascular calcification is noted. Impression: 1. Knee prosthesis and incidental dystrophic calcification. Other incidental findings. Nothing acute is seen. Diagnostic code #2
--- NOTE | 2018-01-09 12:18 | CR ---
Chest and right ribs: Frontal view of the chest was obtained as well as three views of the right ribs. Comparison: Prior chest x-ray of 03/05/17. Nondisplaced fracture is identified within the right seventh rib. No additional fracture is definitely appreciated. Heart size is normal. Tortuous thoracic aorta is noted. Degenerative endplate spurring is noted within the spine. Impression: 1. Nondisplaced right seventh rib fracture. 2. Nothing acute is otherwise seen on frontal chest x-ray. Diagnostic code #3
== END 2018-01-05 19:15 | disposition home or self-care (01) ==
LOC: JD.ED 16:50
DX: S80.01XA Contusion of right knee, initial encounter (principal); S20.211A Contusion of right front wall of thorax, initial encounter; I10 Essential (primary) hypertension; E11.9 Type 2 diabetes mellitus without complications; Z79.82 Long term (current) use of aspirin; Z79.899 Other long term (current) drug therapy; Z87.891 Personal history of nicotine dependence; Z79.84 Long term (current) use of oral hypoglycemic drugs; Z88.5 Allergy status to narcotic agent; W19.XXXA Unspecified fall, initial encounter
CPT/HCPCS: 71101; 73564; 99283; A9270

== ENCOUNTER 2018-08-13 08:07 | Inpatient (IN) | payer MEDICAID, MEDICARE ==
--- NOTE | 2018-08-13 08:26 | EDM.PDOC ---
ED HPI GENERAL MEDICAL PROBLEM - General Chief Complaint: Respiratory Problem Stated Complaint: [facility] Time Seen by Provider: 08/13/18 08:25 - History of Present Illness INITIAL COMMENTS - FREE TEXT/NARRATIVE: 78-year-old female sent emergency room reading difficulties from long term facility. Patient has advanced dementia is unclear exactly what happened apparently O2 saturation dropped now all her vital seems to be pretty normal. Patient is unable to give any sort of history and we don't have met their information from the long term facility - Related Data Allergies Allergy/AdvReac Type Severity Reaction Status Date / Time meperidine HCl [From Demerol] Allergy Cannot Verified 08/13/18 08:20 Remember Home Meds: Home Meds Potassium Chloride [Klor-Con] 10 meq PO DAILY 03/15/15 [History] metFORMIN [Glucophage] 1,000 mg PO BIDMEALS 03/15/15 [History] Sertraline [Zoloft] 100 mg PO DAILY 08/22/15 [History] risperiDONE 1 mg PO BID 08/22/15 [History] traZODone 50 mg PO BEDTIME #30 tablet 08/26/15 [Rx] Hydrocodone/Acetaminophen [[place] 5-325] 5 - 325 mg PO Q8H PRN 03/05/17 [History] Magnesium Hydroxide [Milk of Magnesia] 15 ml PO ASDIRECTED PRN 03/05/17 [History ] Rivastigmine [Exelon] 4.6 mg TOP DAILY 03/05/17 [History] Memantine HCl [Namenda XR] 28 mg PO DAILY 03/06/17 [History] Losartan [Cozaar] 25 mg PO DAILY 07/04/17 [History] Alum Hydrox/Mag Hydrox/Simeth [Maalox Advanced] 10 ml PO Q4H PRN 01/05/18 [ History] Aspirin [Adult Aspirin] 81 mg PO DAILY 01/05/18 [History] Cholecalciferol (Vitamin D3) [Vitamin D3] 2,000 unit PO DAILY 01/05/18 [History] Loperamide [Imodium] 4 mg PO DAILY PRN 01/05/18 [History] Omeprazole 20 mg PO DAILY 01/05/18 [History] Warfarin [Coumadin] 2 mg PO DAILY 08/13/18 [History] Past Medical History HEENT History: Reports: Hard of Hearing, Impaired Vision Cardiovascular History: Reports: Hypertension, Other (See Below) Other Cardiovascular History: hypokalemis Respiratory History: Reports: PE Gastrointestinal History: Reports: GERD Other Gastrointestinal History: dyspepsia Genitourinary History: Reports: UTI, Recurrent 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: Reports: Musculoskeletal History: Reports: Back Pain, Chronic, Osteoporosis, Osteoarthritis Other Musculoskeletal History: bilateral hip osteoarthritis, chronic low back pain Neurological History: Reports: Other (See Below) Other Neuro History: mild cognitive impairment Psychiatric History: Reports: Alzheimers Disease, Dementia, Schizophrenia Other Psychiatric History: generalized anxiety disorder Endocrine/Metabolic History: Reports: Diabetes, Type II Hematologic History: Reports: Anemia, B12 Deficiency Oncologic (Cancer) History: Reports: Other (See Below) Other Oncologic History: malignant meoplasm of ovary - Infectious Disease History Infectious Disease History: Reports: Other (See Below) Other Infectious Disease History: unable to assess pt. is confused. - Past Surgical History Female Surgical History: Reports: Hysterectomy Social & Family History - Family History Family Medical History: Unobtainable - Caffeine Use Caffeine Use: Reports: Coffee Other Caffeine Use: unable to access ED ROS GENERAL - Review of Systems Review Of Systems: Unable To Obtain ED EXAM, GENERAL - Physical Exam Exam: See Below Exam Limited By: Other (She will communicate with him) General Appearance: Alert, No Apparent Distress Eye Exam: Bilateral Eye: Normal Inspection Ears: Normal External Exam, Normal Canal, Hearing Grossly Normal, Normal TMs Nose: Normal Inspection, Normal Mucosa, No Blood Throat/Mouth: Normal Oropharynx, No Airway Compromise Head: Atraumatic, Normocephalic Neck: Normal Inspection, Supple, Non-Tender, Full Range of Motion. No: Lymphadenopathy (L), Lymphadenopathy (R) Respiratory/Chest: No Respiratory Distress, Lungs Clear, Normal Breath Sounds Cardiovascular: Regular Rate, Rhythm, No Edema, No Murmur GI/Abdominal: Normal Bowel Sounds, Soft, Non-Tender Extremities: Normal Inspection, No Pedal Edema Neurological: Alert Skin Exam: Warm, Dry, Intact Lymphatic: No Adenopathy Course - Vital Signs Last Recorded V/S: Last Vital Signs Temp 36.6 C 08/13/18 15:41 Pulse 71 08/13/18 15:41 Resp 23 H 08/13/18 15:41 BP 127/88 08/13/18 15:41 Pulse Ox 94 L 08/13/18 15:41 - Orders/Labs/Meds Orders: Active Orders 24 hr Category Date Time Status Patient Status [ADT] Routine ADT 08/13/18 14:14 Active Patient Status [ADT] Routine ADT 08/13/18 14:38 Active Bedrest Bedside Commode [RC] ASDIRECTED Care 08/13/18 15:42 Active Blood Glucose Check, Bedside [RC] WITHMEALSANDBED Care 08/13/18 15:42 Active EKG Documentation Completion [RC] ASDIRECTED Care 08/13/18 11:08 Active EKG Documentation Completion [RC] STAT Care 08/13/18 08:37 Active VTE/DVT Education [RC] PER UNIT ROUTINE Care 08/13/18 15:43 Active Vital Signs [RC] ASDIRECTED Care 08/13/18 15:42 Active PT Evaluation and Treatment [CONS] Routine Cons 08/13/18 15:42 Active Mechanical Soft Diet [DIET] Diet 08/13/18 Dinner Active Chest 1V Frontal [CR] Stat Exams 08/13/18 08:36 Taken BASIC METABOLIC PANEL,BMP [CHEM] Stat Lab 08/13/18 16:04 Received CBC WITH AUTO DIFF [HEME] AM Lab 08/14/18 05:11 Ordered CMP [COMPREHENSIVE METABOLIC PN,CMP] [CHEM] AM Lab 08/14/18 05:11 Ordered INR,PT,PROTHROMBIN TIME [COAG] AM Lab 08/14/18 05:11 Ordered MAGNESIUM [CHEM] AM Lab 08/14/18 05:11 Ordered MAGNESIUM [CHEM] Stat Lab 08/13/18 16:04 Received PHOSPHORUS [CHEM] AM Lab 08/14/18 05:11 Ordered PHOSPHORUS [CHEM] Stat Lab 08/13/18 16:04 Received Acetaminophen [Tylenol] Med 08/13/18 15:42 Active 650 mg PO Q4H PRN Bisacodyl [Dulcolax] Med 08/13/18 15:42 Active 5 mg PO DAILY PRN Docusate Sodium [Colace] Med 08/13/18 15:42 Active 100 mg PO BID PRN Losartan [Cozaar] Med 08/13/18 16:00 Active 25 mg PO DAILY Omeprazole Med 08/14/18 09:00 Ordered 20 mg PO DAILY Ondansetron [Zofran ODT] Med 08/13/18 15:42 Active 4 mg PO Q6H PRN Rivastigmine [Exelon] Med 08/14/18 09:00 Ordered 4.6 mg TOP DAILY Sertraline Med 08/14/18 09:00 Ordered 100 mg PO DAILY Sodium Chloride 0.9% [Normal Saline] 1,000 ml Med 08/13/18 15:45 Active IV ASDIRECTED Warfarin [Coumadin] Med 08/14/18 09:00 Ordered 2 mg PO DAILY risperiDONE [RisperiDAL] Med 08/13/18 21:00 Active 1 mg PO BID traZODone Med 08/13/18 21:00 Active 50 mg PO BEDTIME EKG 12 Lead [EK] Stat Ther 08/13/18 11:07 Ordered Medication Orders Acetaminophen (Tylenol) 650 mg PO Q4H PRN PRN Reason: Pain (Mild 1-3)/fever Bisacodyl (Dulcolax) 5 mg PO DAILY PRN PRN Reason: Constipation Docusate Sodium (Colace) 100 mg PO BID PRN PRN Reason: Constipation Sodium Chloride (Normal Saline) 1,000 mls @ 75 mls/hr IV ASDIRECTED [facility] Losartan Potassium (Cozaar) 25 mg PO DAILY [facility] Non-Formulary Medication (Omeprazole) 20 mg PO DAILY [facility] Non-Formulary Medication (Rivastigmine [Exelon]) 4.6 mg TOP DAILY [facility]IE Ondansetron HCl (Zofran Odt) 4 mg PO Q6H PRN PRN Reason: nausea, able to take PO Risperidone (Risperidal) 1 mg PO BID [facility]IE Sertraline HCl (Zoloft) 100 mg PO DAILY [facility]IE Trazodone HCl (Trazodone) 50 mg PO BEDTIME VAL[facility]IE Warfarin Sodium (Coumadin) 2 mg PO DAILY [facility] Labs: Laboratory Tests 08/13/18 08/13/18 08/13/18 Range/Units 08:55 08:55 08:55 WBC 9.19 (3.98-10.04) K/mm3 RBC 3.89 L (3.98-5.22) M/mm3 Hgb 10.8 L (11.2-15.7) gm/L Hct 35.9 (34.1-44.9) % MCV 92.3 (79.4-94.8) fl MCH 27.8 (25.6-32.2) pg MCHC 30.1 L (32.2-35.5) g/dl RDW Std Deviation 54.4 H (36.4-46.3) fL Plt Count 252 (182-369) K/mm3 MPV 9.8 (9.4-12.3) fl Neutrophils % (Manual) 88 H (40-60) % Band Neutrophils % 0 (0-10) % Lymphocytes % (Manual) 7 L (20-40) % Atypical Lymphs % 0 % Monocytes % (Manual) 4 (2-10) % Eosinophils % (Manual) 1 (0.7-5.8) % Basophils % (Manual) 0 L (0.1-1.2) Platelet Estimate Adequate Hypochromasia Moderate RBC Morph Comment Not Reportable PT 25.0 H (9.5-12.1) SECONDS INR 2.33 APTT 34 H (24-31) SECONDS Sodium 146 H (136-145) mEq/L Potassium 3.2 L (3.5-5.1) mEq/L Chloride 111 H (98-107) mEq/L Carbon Dioxide 24 (21-32) mEq/L Anion Gap 14.2 (5-15) BUN 12 (7-18) mg/dL Creatinine 0.9 (0.55-1.02) mg/dL Est Cr Clr Drug Dosing TNP Estimated GFR (MDRD) > 60 (>60) mL/min BUN/Creatinine Ratio 13.3 L (14-18) Glucose 120 H (83-115) mg/dL Calcium 7.8 L (8.5-10.1) mg/dL Magnesium (1.8-2.4) mg/dl Total Bilirubin 0.3 (0.2-1.0) mg/dL AST 16 (15-37) U/L ALT 20 (14-59) U/L Alkaline Phosphatase 63 (46-116) U/L Troponin I 0.021 (0.00-0.056) ng/mL Total Protein 5.4 L (6.4-8.2) g/dl Albumin 2.1 L (3.4-5.0) g/dl Globulin 3.3 gm/dL Albumin/Globulin Ratio 0.6 L (1-2) 08/13/18 Range/Units 12:07 WBC (3.98-10.04) K/mm3 RBC (3.98-5.22) M/mm3 Hgb (11.2-15.7) gm/L Hct (34.1-44.9) % MCV (79.4-94.8) fl MCH (25.6-32.2) pg MCHC (32.2-35.5) g/dl RDW Std Deviation (36.4-46.3) fL Plt Count (182-369) K/mm3 MPV (9.4-12.3) fl Neutrophils % (Manual) (40-60) % Band Neutrophils % (0-10) % Lymphocytes % (Manual) (20-40) % Atypical Lymphs % % Monocytes % (Manual) (2-10) % Eosinophils % (Manual) (0.7-5.8) % Basophils % (Manual) (0.1-1.2) Platelet Estimate Hypochromasia RBC Morph Comment PT (9.5-12.1) SECONDS INR APTT (24-31) SECONDS Sodium (136-145) mEq/L Potassium (3.5-5.1) mEq/L Chloride (98-107) mEq/L Carbon Dioxide (21-32) mEq/L Anion Gap (5-15) BUN (7-18) mg/dL Creatinine (0.55-1.02) mg/dL Est Cr Clr Drug Dosing Estimated GFR (MDRD) (>60) mL/min BUN/Creatinine Ratio (14-18) Glucose (83-115) mg/dL Calcium (8.5-10.1) mg/dL Magnesium 0.2 L* (1.8-2.4) mg/dl Total Bilirubin (0.2-1.0) mg/dL AST (15-37) U/L ALT (14-59) U/L Alkaline Phosphatase (46-116) U/L Troponin I 0.019 (0.00-0.056) ng/mL Total Protein (6.4-8.2) g/dl Albumin (3.4-5.0) g/dl Globulin gm/dL Albumin/Globulin Ratio (1-2) Meds: Medications Generic Name Dose Route Start Last Admin Trade Name Freq PRN Reason Stop Dose Admin Acetaminophen 650 mg 08/13/18 15:42 Tylenol PO Q4H PRN Pain (Mild 1-3)/fever Bisacodyl 5 mg 08/13/18 15:42 Dulcolax PO DAILY PRN Constipation Docusate Sodium 100 mg 08/13/18 15:42 Colace PO BID PRN Constipation Sodium Chloride 1,000 mls @ 75 mls/hr 08/13/18 15:45 Normal Saline IV ASDIRECTED VALORIE Losartan Potassium 25 mg 08/13/18 16:00 Cozaar PO DAILY [facility] Non-Formulary Medication 20 mg 08/14/18 09:00 Omeprazole PO DAILY [facility] Non-Formulary Medication 4.6 mg 08/14/18 09:00 Rivastigmine [Exelon] TOP DAILY [facility] Ondansetron HCl 4 mg 08/13/18 15:42 Zofran Odt PO Q6H PRN nausea, able to take PO Risperidone 1 mg 08/13/18 21:00 Risperidal PO BID VALORIE Sertraline HCl 100 mg 08/14/18 09:00 Zoloft PO DAILY VALORIE Trazodone HCl 50 mg 08/13/18 21:00 Trazodone PO BEDTIME [facility] Warfarin Sodium 2 mg 08/14/18 09:00 Coumadin PO DAILY [facility] Discontinued Medications Generic Name Dose Route Start Last Admin Trade Name Freq PRN Reason Stop Dose Admin Magnesium Sulfate/Dextrose 1 100 mls @ 100 mls/hr 08/13/18 13:01 08/13/18 13: 15 gm/ Premix IV 08/13/18 14:00 Not Given ONETIME ONE Magnesium Sulfate 2 gm/ Premix 50 mls @ 25 mls/hr 08/13/18 13:14 08/13/18 13: 30 IV 08/13/18 15:13 25 mls/hr ONETIME ONE Administration Metoprolol Tartrate 2.5 mg 08/13/18 12:16 08/13/18 12:26 Lopressor IVPUSH 08/13/18 12:17 2.5 mg ONETIME ONE Administration Metoprolol Tartrate 2.5 mg 08/13/18 12:16 08/13/18 12:28 Lopressor IVPUSH 08/13/18 12:17 Not Given ONETIME ONE Potassium Chloride 40 meq 08/13/18 11:23 08/13/18 11:36 Klor-Con M20 PO 08/13/18 11:24 40 meq ONETIME ONE Administration - Radiology Interpretation Free Text/Narrative:: The patient had a hypoxic episode. Emergency department this was associated with a tachydysrhythmia because of artifact it was clear to identify how this started it seemed to resolve in what could've been atrial fibrillation RVR or a atrial tachycardia and then she developed a sinus rhythm with a rate in the low 120s in this gradually slowed into the normal range. I did discuss patient's case with her son Roge who is thinking that the patient would be best served with conservative management that we can provide in [place] that he will discuss it further and get back to us shortly. - Re-Assessments/Exams Free Text/Narrative Re-Assessment/Exam: 08/13/18 13:08 Magnesium came back critically low at 0.2 we started IV magnesium case discussed with Dr. Kapoor who will assume care of the patient and work on supplementing her magnesium and potassium. Departure - Departure Time of Disposition: 13:09 Disposition: DC/Tfer to [facility] 03 Clinical Impression: Hypokalemia, Hypomagnesemia, Tachycardia, paroxysmal - Discharge Information Referrals: Maxx Hutton MD [Primary Care Provider] - Forms: ED Department Discharge - My Orders Last 24 Hours: My Active Orders 08/13/18 08:36 Chest 1V Frontal [CR] Stat 08/13/18 08:37 EKG Documentation Completion [RC] STAT 08/13/18 11:07 EKG 12 Lead [EK] Stat 08/13/18 11:08 EKG Documentation Completion [RC] ASDIRECTED 08/13/18 14:14 Patient Status [ADT] Routine - Assessment/Plan Last 24 Hours: My Active Orders 08/13/18 08:36 Chest 1V Frontal [CR] Stat 08/13/18 08:37 EKG Documentation Completion [RC] STAT 08/13/18 11:07 EKG 12 Lead [EK] Stat 08/13/18 11:08 EKG Documentation Completion [RC] ASDIRECTED 08/13/18 14:14 Patient Status [ADT] Routine
[2018-08-13] MEDS ORDERED: Potassium Chloride 20 MEQ Tab.ER PO ONE (11:23)
[2018-08-13] MEDS ORDERED: Metoprolol Tartrate 5 MG/5 ML SDV IVPUSH ONE ×2 (12:16)
[2018-08-13] MEDS ORDERED: Magnesium Sulfate/Water 2 GM in Premix Bag 1 BAG IV ONE (13:14)
[2018-08-13] MEDS ORDERED: Ondansetron 4 MG Tab.DIS PO PRN (15:42)
[2018-08-13] MEDS ORDERED: Bisacodyl 5 MG Tab PO PRN (15:42)
[2018-08-13] MEDS ORDERED: Acetaminophen 325 MG Tab PO PRN (15:42)
[2018-08-13] MEDS ORDERED: Docusate Sodium 100 MG Cap PO PRN (15:42)
[2018-08-13] MEDS: Sodium Chloride 0.9% 1,000 ML IV SCH (16:18)
[2018-08-13] MEDS ORDERED: Magnesium Sulfate/Water 4 GM in Premix Bag 1 BAG IV ONE (16:19)
[2018-08-13] MEDS: Losartan 25 MG Tab PO SCH (16:32)
--- NOTE | 2018-08-13 17:09 | PCM.HP ---
H&P History of Present Illness - General Date of Service: 08/13/18 Admit Problem/Dx: Admission Diagnosis/Problem Admission Diagnosis/Problem Hypomagnesemia Source of Information: Snf Records, Provider - History of Present Illness Initial Comments - Free Text/Narative: This 78-year-old female with severe dementia was brought in from a nursing facility secondary to an hypoxic episode that happened in the residential and the patient became nonresponsive. History is obtained through the emergency room physician and residential records. Son was not available for me to interview. Patient was brought to the emergency room where another episode occurred and her pulse ox dropped into the 50s and her heart rate went into the 130s. Patient has underlying baseline atrial fibrillation. Initial workup in the emergency room found that her magnesium was low at 0.2. Review of her old records demonstrates that when she was in the hospital in April 2018 she also had a low magnesium of 0.5 on presentation. Patient is not on any home magnesium but is on home potassium. Her potassium in the emergency room was slightly low at 3.2. The emergency room physician gave her oral potassium and 2 g IV magnesium. Patient is now in the ICU and resting comfortably. Emergency room nurses stated that she ate lunch without difficulty and has taken her oral medications without difficulty. She is noncommunicative. Nursing reported that she did have a couple episodes of vomiting when she was at the nursing facility. - Related Data Allergies/Adverse Reactions: Allergies Allergy/AdvReac Type Severity Reaction Status Date / Time meperidine HCl [From Demerol] Allergy Cannot Verified 08/13/18 08:20 Remember Home Medications: Home Meds Potassium Chloride [Klor-Con] 10 meq PO DAILY 03/15/15 [History] metFORMIN [Glucophage] 1,000 mg PO BIDMEALS 03/15/15 [History] Sertraline [Zoloft] 100 mg PO DAILY 08/22/15 [History] risperiDONE 1 mg PO BID 08/22/15 [History] traZODone 50 mg PO BEDTIME #30 tablet 08/26/15 [Rx] Hydrocodone/Acetaminophen [[place] 5-325] 5 - 325 mg PO Q8H PRN 03/05/17 [History] Magnesium Hydroxide [Milk of Magnesia] 15 ml PO ASDIRECTED PRN 03/05/17 [History ] Rivastigmine [Exelon] 4.6 mg TOP DAILY 03/05/17 [History] Memantine HCl [Namenda XR] 28 mg PO DAILY 03/06/17 [History] Losartan [Cozaar] 25 mg PO DAILY 07/04/17 [History] Alum Hydrox/Mag Hydrox/Simeth [Maalox Advanced] 10 ml PO Q4H PRN 01/05/18 [ History] Aspirin [Adult Aspirin] 81 mg PO DAILY 01/05/18 [History] Cholecalciferol (Vitamin D3) [Vitamin D3] 2,000 unit PO DAILY 01/05/18 [History] Loperamide [Imodium] 4 mg PO DAILY PRN 01/05/18 [History] Omeprazole 20 mg PO DAILY 01/05/18 [History] Warfarin [Coumadin] 2 mg PO DAILY 08/13/18 [History] Past Medical History HEENT History: Reports: Hard of Hearing, Impaired Vision Cardiovascular History: Reports: Hypertension, Other (See Below) Other Cardiovascular History: hypokalemis Respiratory History: Reports: PE Gastrointestinal History: Reports: GERD Other Gastrointestinal History: dyspepsia Genitourinary History: Reports: UTI, 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 History: Reports: Musculoskeletal History: Reports: Back Pain, Chronic, Osteoporosis, Osteoarthritis Other Musculoskeletal History: bilateral hip osteoarthritis, chronic low back pain Neurological History: Reports: Other (See Below) Other Neuro History: mild cognitive impairment Psychiatric History: Reports: Alzheimers Disease, Dementia, Schizophrenia Other Psychiatric History: generalized anxiety disorder Endocrine/Metabolic History: Reports: Diabetes, Type II Hematologic History: Reports: Anemia, B12 Deficiency Oncologic (Cancer) History: Reports: Other (See Below) Other Oncologic History: malignant meoplasm of ovary - Infectious Disease History Infectious Disease History: Reports: Other (See Below) Other Infectious Disease History: unable to assess pt. is confused. - Past Surgical History Female Surgical History: Reports: Hysterectomy Social & Family History - Family History Family Medical History: Unobtainable - Tobacco Use Smoking Status *Q: Never Smoker Second Hand Smoke Exposure: No - Caffeine Use Caffeine Use: Reports: Coffee Other Caffeine Use: unable to access - Recreational Drug Use Recreational Drug Use: No H&P Review of Systems - Review of Systems: Review Of Systems: See Below General: Reports: Weight Loss HEENT: Reports: No Symptoms Pulmonary: Reports: No Symptoms Cardiovascular: Reports: No Symptoms Gastrointestinal: Reports: Nausea, Vomiting. Denies: Constipation, Diarrhea Genitourinary: Reports: Incontinence Musculoskeletal: Reports: No Symptoms Skin: Reports: No Symptoms Psychiatric: Reports: Confusion Neurological: Reports: Confusion, Gait Disturbance Hematologic/Lymphatic: Reports: No Symptoms Immunologic: Reports: No Symptoms Exam - Exam Exam: See Below - Vital Signs Vital Signs: Last Vital Signs Temp 97.8 F 08/13/18 15:41 Pulse 71 08/13/18 15:41 Resp 23 H 08/13/18 15:41 BP 137/88 08/13/18 16:32 Pulse Ox 94 L 08/13/18 15:41 Weight: 298 lb 8.094 oz - Exam General: Alert HEENT: Conjunctiva Clear, Mucosa Moist & Greasy Neck: Supple, Trachea Midline Lungs: Clear to Auscultation, Normal Respiratory Effort Cardiovascular: Irregular Rhythm GI/Abdominal Exam: Normal Bowel Sounds, Soft, Non-Tender, No Organomegaly, No Distention Extremities: Normal Inspection, Normal Range of Motion. No: Pedal Edema Neuro Extensive - Mental Status: Disorientation to Person, Disorientation to Place, Disorientation to Time, Opens Eyes to Commands. No: Normal Cognition Neuro Extensive - Motor, Sensory, Reflexes: No: Normal Gait (Patient lying comfortably in the bed.) - Patient Data Lab Results Last 24 hrs: Laboratory Results - last 24 hr 08/13/18 08/13/18 08/13/18 Range/Units 08:55 08:55 08:55 WBC 9.19 (3.98-10.04) K/mm3 RBC 3.89 L (3.98-5.22) M/mm3 Hgb 10.8 L (11.2-15.7) gm/L Hct 35.9 (34.1-44.9) % MCV 92.3 (79.4-94.8) fl MCH 27.8 (25.6-32.2) pg MCHC 30.1 L (32.2-35.5) g/dl RDW Std Deviation 54.4 H (36.4-46.3) fL Plt Count 252 (182-369) K/mm3 MPV 9.8 (9.4-12.3) fl Neutrophils % (Manual) 88 H (40-60) % Band Neutrophils % 0 (0-10) % Lymphocytes % (Manual) 7 L (20-40) % Atypical Lymphs % 0 % Monocytes % (Manual) 4 (2-10) % Eosinophils % (Manual) 1 (0.7-5.8) % Basophils % (Manual) 0 L (0.1-1.2) Platelet Estimate Adequate Hypochromasia Moderate RBC Morph Comment Not Reportable PT 25.0 H (9.5-12.1) SECONDS INR 2.33 APTT 34 H (24-31) SECONDS Sodium 146 H (136-145) mEq/L Potassium 3.2 L (3.5-5.1) mEq/L Chloride 111 H (98-107) mEq/L Carbon Dioxide 24 (21-32) mEq/L Anion Gap 14.2 (5-15) BUN 12 (7-18) mg/dL Creatinine 0.9 (0.55-1.02) mg/dL Est Cr Clr Drug Dosing TNP Estimated GFR (MDRD) > 60 (>60) mL/min BUN/Creatinine Ratio 13.3 L (14-18) Glucose 120 H (83-115) mg/dL Calcium 7.8 L (8.5-10.1) mg/dL Phosphorus (2.6-4.7) mg/dL Magnesium (1.8-2.4) mg/dl Total Bilirubin 0.3 (0.2-1.0) mg/dL AST 16 (15-37) U/L ALT 20 (14-59) U/L Alkaline Phosphatase 63 (46-116) U/L Troponin I 0.021 (0.00-0.056) ng/mL Total Protein 5.4 L (6.4-8.2) g/dl Albumin 2.1 L (3.4-5.0) g/dl Globulin 3.3 gm/dL Albumin/Globulin Ratio 0.6 L (1-2) 08/13/18 08/13/18 Range/Units 12:07 16:04 WBC (3.98-10.04) K/mm3 RBC (3.98-5.22) M/mm3 Hgb (11.2-15.7) gm/L Hct (34.1-44.9) % MCV (79.4-94.8) fl MCH (25.6-32.2) pg MCHC (32.2-35.5) g/dl RDW Std Deviation (36.4-46.3) fL Plt Count (182-369) K/mm3 MPV (9.4-12.3) fl Neutrophils % (Manual) (40-60) % Band Neutrophils % (0-10) % Lymphocytes % (Manual) (20-40) % Atypical Lymphs % % Monocytes % (Manual) (2-10) % Eosinophils % (Manual) (0.7-5.8) % Basophils % (Manual) (0.1-1.2) Platelet Estimate Hypochromasia RBC Morph Comment PT (9.5-12.1) SECONDS INR APTT (24-31) SECONDS Sodium 148 H (136-145) mEq/L Potassium 3.7 (3.5-5.1) mEq/L Chloride 113 H (98-107) mEq/L Carbon Dioxide 28 (21-32) mEq/L Anion Gap 10.7 (5-15) BUN 11 (7-18) mg/dL Creatinine 0.9 (0.55-1.02) mg/dL Est Cr Clr Drug Dosing 47.45 Estimated GFR (MDRD) > 60 (>60) mL/min BUN/Creatinine Ratio 12.2 L (14-18) Glucose 123 H (83-115) mg/dL Calcium 8.1 L (8.5-10.1) mg/dL Phosphorus 2.2 L (2.6-4.7) mg/dL Magnesium 0.2 L* 0.8 L (1.8-2.4) mg/dl Total Bilirubin (0.2-1.0) mg/dL AST (15-37) U/L ALT (14-59) U/L Alkaline Phosphatase (46-116) U/L Troponin I 0.019 (0.00-0.056) ng/mL Total Protein (6.4-8.2) g/dl Albumin (3.4-5.0) g/dl Globulin gm/dL Albumin/Globulin Ratio (1-2) Result Diagrams: 08/13/18 08:55 08/13/18 16:04 Imaging Impressions Last 24 hrs: Chest x-ray showed no acute findings. EKG INTERPRETATION Rhythm: A-Fib - Problem List (1) Atrial fibrillation SNOMED Code(s): 53302886 ICD Code: I48.91 - UNSPECIFIED ATRIAL FIBRILLATION Status: Acute Current Visit: Yes (2) Hypokalemia SNOMED Code(s): 02964744 ICD Code: E87.6 - HYPOKALEMIA Status: Acute Current Visit: Yes (3) Hypomagnesemia SNOMED Code(s): 335248563 ICD Code: E83.42 - HYPOMAGNESEMIA Status: Acute Current Visit: Yes (4) Tachycardia, paroxysmal SNOMED Code(s): 94911248 ICD Code: I47.9 - PAROXYSMAL TACHYCARDIA, UNSPECIFIED Status: Acute Current Visit: Yes (5) Dementia SNOMED Code(s): 00153162 ICD Code: F03.90 - UNSPECIFIED DEMENTIA WITHOUT BEHAVIORAL DISTURBANCE Status: Chronic Priority: High Current Visit: No Qualifiers: Dementia type: Alzheimer's disease Alzheimer's disease onset: unspecified onset Problem List Initiated/Reviewed/Updated: Yes Orders Last 24hrs: Active Orders 24 hr Category Date Time Status Patient Status [ADT] Routine ADT 08/13/18 14:14 Active Patient Status [ADT] Routine ADT 08/13/18 14:38 Active Bedrest Bedside Commode [RC] ASDIRECTED Care 08/13/18 15:42 Active Blood Glucose Check, Bedside [RC] WITHMEALSANDBED Care 08/13/18 15:42 Active EKG Documentation Completion [RC] ASDIRECTED Care 08/13/18 11:08 Active VTE/DVT Education [RC] PER UNIT ROUTINE Care 08/13/18 15:43 Active Vital Signs [RC] ASDIRECTED Care 08/13/18 15:42 Active PT Evaluation and Treatment [CONS] Routine Cons 08/13/18 15:42 Active Mechanical Soft Diet [DIET] Diet 08/13/18 Dinner Active Chest 1V Frontal [CR] Stat Exams 08/13/18 08:36 Taken BASIC METABOLIC PANEL,BMP [CHEM] Timed Lab 08/13/18 20:01 Ordered CBC WITH AUTO DIFF [HEME] AM Lab 08/14/18 05:11 Ordered CMP [COMPREHENSIVE METABOLIC PN,CMP] [CHEM] AM Lab 08/14/18 05:11 Ordered INR,PT,PROTHROMBIN TIME [COAG] AM Lab 08/14/18 05:11 Ordered MAGNESIUM [CHEM] AM Lab 08/14/18 05:11 Ordered MAGNESIUM [CHEM] Timed Lab 08/13/18 20:01 Ordered METH-RESIST S.AUR,MRSA BY PCR [MOLEC] Routine Lab 08/13/18 16:45 Received PHOSPHORUS [CHEM] AM Lab 08/14/18 05:11 Ordered TROPONIN I [CHEM] AM Lab 08/14/18 05:11 Ordered Acetaminophen [Tylenol] Med 08/13/18 15:42 Active 650 mg PO Q4H PRN Bisacodyl [Dulcolax] Med 08/13/18 15:42 Active 5 mg PO DAILY PRN Docusate Sodium [Colace] Med 08/13/18 15:42 Active 100 mg PO BID PRN Insulin Lispro [HumaLOG] Med 08/13/18 17:00 Active See Protocol SUBCUT QIDACANDBED Losartan [Cozaar] Med 08/13/18 16:00 Active 25 mg PO DAILY Ondansetron [Zofran ODT] Med 08/13/18 15:42 Active 4 mg PO Q6H PRN Pantoprazole [ProTONIX] Med 08/14/18 07:00 Active 40 mg PO DAILY@0700 Rivastigmine [Exelon] Med 08/14/18 09:00 Pending 4.6 mg TOP DAILY Sertraline [Zoloft] Med 08/14/18 09:00 Active 100 mg PO DAILY Sodium Chloride 0.9% [Normal Saline] 1,000 ml Med 08/13/18 15:45 Active IV ASDIRECTED Warfarin [Coumadin] Med 08/13/18 18:00 Active 2 mg PO DAILY@1800 risperiDONE [RisperiDAL] Med 08/13/18 21:00 Active 1 mg PO BID traZODone Med 08/13/18 21:00 Active 50 mg PO BEDTIME EKG 12 Lead [EK] Stat Ther 08/13/18 11:07 Ordered Medication Orders Acetaminophen (Tylenol) 650 mg PO Q4H PRN PRN Reason: Pain (Mild 1-3)/fever Bisacodyl (Dulcolax) 5 mg PO DAILY PRN PRN Reason: Constipation Docusate Sodium (Colace) 100 mg PO BID PRN PRN Reason: Constipation Sodium Chloride (Normal Saline) 1,000 mls @ 75 mls/hr IV ASDIRECTED VALORIE Last Admin: 08/13/18 16:18 Dose: 75 mls/hr Insulin Human Lispro (Humalog) 0 unit SUBCUT QIDACANDBED [facility]; Protocol Losartan Potassium (Cozaar) 25 mg PO DAILY [facility] Last Admin: 08/13/18 16:32 Dose: 25 mg Non-Formulary Medication (Rivastigmine [Exelon]) 4.6 mg TOP DAILY [facility] Ondansetron HCl (Zofran Odt) 4 mg PO Q6H PRN PRN Reason: nausea, able to take PO Pantoprazole Sodium (Protonix) 40 mg PO DAILY@0700 [facility] Risperidone (Risperidal) 1 mg PO BID [facility] Sertraline HCl (Zoloft) 100 mg PO DAILY [facility] Trazodone HCl (Trazodone) 50 mg PO BEDTIME [facility] Warfarin Sodium (Coumadin) 2 mg PO DAILY@1800 [facility] Assessment/Plan Comment:: Severe hypomagnesemia - Admit to ICU - Patient with a severely low magnesium of 0.2. Patient had a similar episode of low magnesium in April 2018 and it was 0.5. - This appears to be a symptomatic hypomagnesemia since the patient did develop atrial fibrillation with hypoxemia and became unresponsive. - Patient was given 2 g of magnesium in the emergency room and and her magnesium level came up to 0.8. - Patient will be given another 4 g of magnesium and we will repeat magnesium one hour after she receives this. We will also repeat magnesium levels in the morning. - This may be due to poor oral intake. Review of her medication shows no diuretics or other medications that would cause low magnesium. Hypokalemia - Patient was given oral potassium supplementation the emergency room and her most recent potassium level is normal at 3.7. We will monitor in the morning. A. fib with RVR - Patient be monitored in the ICU. At this time she has a controlled rate and we'll continue to monitor as we replace her magnesium. - Continue Coumadin and recheck INR in the morning. She is currently therapeutic at 2.33. Dementia - This may be contributing to oral intake and possible while she is having decrease in her magnesium level. Likely pulmonary artery hypertension - In April patient came in with pulmonary embolism. Echocardiogram showed an increase in her right ventricular systolic pressure is severely elevated at 64.9 mmHg. This is likely contributing to her hypoxemia when heart rate increases or she increases work load. VTE prophylaxis with Coumadin. Disposition: back to residential in the next couple of days after replenishing electrolytes.
[2018-08-13] MEDS: Insulin Lispro 100 Units/ML 3 ML Vial SUBCUT SCH ×2 (17:32→21:14)
[2018-08-13] MEDS: Warfarin 2 MG Tab PO SCH (18:26)
[2018-08-13] MEDS: traZODone 50 MG Tab PO SCH (20:24)
[2018-08-13] MEDS: risperiDONE 1 MG Tab PO SCH (20:24)
[2018-08-14] MEDS: Sodium Chloride 0.9% 1,000 ML IV SCH (05:11)
[2018-08-14] MEDS: Insulin Lispro 100 Units/ML 3 ML Vial SUBCUT SCH ×4 (06:20→23:34)
[2018-08-14] MEDS: Pantoprazole 40 MG Tab.CR PO SCH (06:29)
[2018-08-14] MEDS ORDERED: Magnesium Sulfate/Water 2 GM in Premix Bag 1 BAG IV ONE (07:20)
[2018-08-14] MEDS ORDERED: POTASSIUM PHOSPHATES IV ONE (07:21)
[2018-08-14] MEDS ORDERED: SODIUM CHLORIDE IV ONE (07:21)
[2018-08-14] MEDS: Lactated Ringers 1,000 ML IV SCH ×2 (07:57→18:04)
[2018-08-14] MEDS: Sertraline 50 MG Tab PO SCH (08:04)
[2018-08-14] MEDS: risperiDONE 1 MG Tab PO SCH ×2 (08:04→20:24)
[2018-08-14] MEDS: Losartan 25 MG Tab PO SCH (08:04)
[2018-08-14] MEDS ORDERED: Magnesium Sulfate/Water 4 GM in Premix Bag 1 BAG IV ONE (08:30)
[2018-08-14] MEDS ORDERED: RIVASTIGMINE 4.6 MG/24 HR TOP SCH (09:00)
[2018-08-14] MEDS ORDERED: Potassium Phosphates 30 MMOLE in Sodium Chloride 0.9% 500 ML IV ONE (09:30)
[2018-08-14] MEDS: Magnesium Oxide 400 MG Tab PO SCH ×2 (11:55→20:22)
--- NOTE | 2018-08-14 12:14 | PCM.PN ---
- General Info Date of Service: 08/14/18 Admission Dx/Problem (Free Text): Admission Diagnosis/Problem Admission Diagnosis/Problem Hypomagnesemia This 78-year-old female with severe dementia was brought in from a nursing facility secondary to an hypoxic episode that happened in the long-term and the patient became nonresponsive. History is obtained through the emergency room physician and long-term records. Son was not available for me to interview. Patient was brought to the emergency room where another episode occurred and her pulse ox dropped into the 50s and her heart rate went into the 130s. Patient has underlying baseline atrial fibrillation. Initial workup in the emergency room found that her magnesium was low at 0.2. Review of her old records demonstrates that when she was in the hospital in April 2018 she also had a low magnesium of 0.5 on presentation. Patient is not on any home magnesium but is on home potassium. Her potassium in the emergency room was slightly low at 3.2. The emergency room physician gave her oral potassium and 2 g IV magnesium. Patient is now in the ICU and resting comfortably. Emergency room nurses stated that she ate lunch without difficulty and has taken her oral medications without difficulty. She is noncommunicative. Nursing reported that she did have a couple episodes of vomiting when she was at the nursing facility. Subjective Update: Patient has done well overnight and has received IV magnesium and potassium. Patient did have 2 episodes of bradycardia in which her pulse dropped into the 30s. Patient was asymptomatic with these episodes. Currently patient is eating well and has not had any loose stools. - Review of Systems General: Reports: No Symptoms HEENT: Reports: No Symptoms Pulmonary: Reports: No Symptoms Cardiovascular: Reports: No Symptoms Gastrointestinal: Reports: No Symptoms - Patient Data Vitals - Most Recent: Last Vital Signs Temp 97.9 F 08/14/18 06:42 Pulse 60 08/14/18 06:42 Resp 15 08/14/18 06:42 BP 137/66 08/14/18 08:04 Pulse Ox 96 08/14/18 06:42 Weight - Most Recent: 132 lb 3.2 oz I&O - Last 24 Hours: Intake & Output 08/13/18 08/14/18 08/14/18 21:59 06:59 14:59 Intake Total 300 Balance 300 Lab Results Last 24 Hours: Laboratory Results - last 24 hr 08/13/18 08/13/18 08/13/18 Range/Units 12:07 16:04 16:45 WBC (3.98-10.04) K/mm3 RBC (3.98-5.22) M/mm3 Hgb (11.2-15.7) gm/L Hct (34.1-44.9) % MCV (79.4-94.8) fl MCH (25.6-32.2) pg MCHC (32.2-35.5) g/dl RDW Std Deviation (36.4-46.3) fL Plt Count (182-369) K/mm3 MPV (9.4-12.3) fl Neut % (Auto) (34.0-71.1) % Lymph % (Auto) (19.3-51.7) % [place] % (Auto) (4.7-12.5) % Eos % (Auto) (0.7-5.8) Baso % (Auto) (0.1-1.2) % Neut # (Auto) (1.56-6.13) K/mm3 Lymph # (Auto) (1.18-3.74) K/mm3 [place] # (Auto) (0.24-0.36) K/mm3 Eos # (Auto) (0.04-0.36) K/mm3 Baso # (Auto) (0.01-0.08) K/mm3 PT (9.5-12.1) SECONDS INR Sodium 148 H (136-145) mEq/L Potassium 3.7 (3.5-5.1) mEq/L Chloride 113 H (98-107) mEq/L Carbon Dioxide 28 (21-32) mEq/L Anion Gap 10.7 (5-15) BUN 11 (7-18) mg/dL Creatinine 0.9 (0.55-1.02) mg/dL Est Cr Clr Drug Dosing 47.45 mL/min Estimated GFR (MDRD) > 60 (>60) mL/min BUN/Creatinine Ratio 12.2 L (14-18) Glucose 123 H (83-115) mg/dL POC Glucose (83-110) mg/dL Calcium 8.1 L (8.5-10.1) mg/dL Phosphorus 2.2 L (2.6-4.7) mg/dL Magnesium 0.2 L* 0.8 L (1.8-2.4) mg/dl Total Bilirubin (0.2-1.0) mg/dL AST (15-37) U/L ALT (14-59) U/L Alkaline Phosphatase (46-116) U/L Troponin I 0.019 (0.00-0.056) ng/mL Total Protein (6.4-8.2) g/dl Albumin (3.4-5.0) g/dl Globulin gm/dL Albumin/Globulin Ratio (1-2) MRSA (PCR) Negative 08/13/18 08/13/18 08/13/18 Range/Units 17:31 20:16 21:39 WBC (3.98-10.04) K/mm3 RBC (3.98-5.22) M/mm3 Hgb (11.2-15.7) gm/L Hct (34.1-44.9) % MCV (79.4-94.8) fl MCH (25.6-32.2) pg MCHC (32.2-35.5) g/dl RDW Std Deviation (36.4-46.3) fL Plt Count (182-369) K/mm3 MPV (9.4-12.3) fl Neut % (Auto) (34.0-71.1) % Lymph % (Auto) (19.3-51.7) % [place] % (Auto) (4.7-12.5) % Eos % (Auto) (0.7-5.8) Baso % (Auto) (0.1-1.2) % Neut # (Auto) (1.56-6.13) K/mm3 Lymph # (Auto) (1.18-3.74) K/mm3 [place] # (Auto) (0.24-0.36) K/mm3 Eos # (Auto) (0.04-0.36) K/mm3 Baso # (Auto) (0.01-0.08) K/mm3 PT (9.5-12.1) SECONDS INR Sodium 145 (136-145) mEq/L Potassium 3.8 (3.5-5.1) mEq/L Chloride 110 H (98-107) mEq/L Carbon Dioxide 25 (21-32) mEq/L Anion Gap 13.8 (5-15) BUN 10 (7-18) mg/dL Creatinine 1.0 (0.55-1.02) mg/dL Est Cr Clr Drug Dosing 42.70 mL/min Estimated GFR (MDRD) 53 (>60) mL/min BUN/Creatinine Ratio 10.0 L (14-18) Glucose 136 H (83-115) mg/dL POC Glucose 128 H 187 H (83-110) mg/dL Calcium 7.7 L (8.5-10.1) mg/dL Phosphorus (2.6-4.7) mg/dL Magnesium 2.0 (1.8-2.4) mg/dl Total Bilirubin (0.2-1.0) mg/dL AST (15-37) U/L ALT (14-59) U/L Alkaline Phosphatase (46-116) U/L Troponin I (0.00-0.056) ng/mL Total Protein (6.4-8.2) g/dl Albumin (3.4-5.0) g/dl Globulin gm/dL Albumin/Globulin Ratio (1-2) MRSA (PCR) 08/14/18 08/14/18 08/14/18 Range/Units 04:58 05:23 05:23 WBC 8.08 (3.98-10.04) K/mm3 RBC 3.58 L (3.98-5.22) M/mm3 Hgb 10.3 L (11.2-15.7) gm/L Hct 33.8 L (34.1-44.9) % MCV 94.4 (79.4-94.8) fl MCH 28.8 (25.6-32.2) pg MCHC 30.5 L (32.2-35.5) g/dl RDW Std Deviation 55.0 H (36.4-46.3) fL Plt Count 255 (182-369) K/mm3 MPV 9.9 (9.4-12.3) fl Neut % (Auto) 65.3 (34.0-71.1) % Lymph % (Auto) 25.6 (19.3-51.7) % [place] % (Auto) 8.2 (4.7-12.5) % Eos % (Auto) 0.2 L (0.7-5.8) Baso % (Auto) 0.2 (0.1-1.2) % Neut # (Auto) 5.27 (1.56-6.13) K/mm3 Lymph # (Auto) 2.07 (1.18-3.74) K/mm3 [place] # (Auto) 0.66 H (0.24-0.36) K/mm3 Eos # (Auto) 0.02 L (0.04-0.36) K/mm3 Baso # (Auto) 0.02 (0.01-0.08) K/mm3 PT 21.6 H (9.5-12.1) SECONDS INR 2.01 Sodium (136-145) mEq/L Potassium (3.5-5.1) mEq/L Chloride (98-107) mEq/L Carbon Dioxide (21-32) mEq/L Anion Gap (5-15) BUN (7-18) mg/dL Creatinine (0.55-1.02) mg/dL Est Cr Clr Drug Dosing mL/min Estimated GFR (MDRD) (>60) mL/min BUN/Creatinine Ratio (14-18) Glucose (83-115) mg/dL POC Glucose 100 (83-110) mg/dL Calcium (8.5-10.1) mg/dL Phosphorus (2.6-4.7) mg/dL Magnesium (1.8-2.4) mg/dl Total Bilirubin (0.2-1.0) mg/dL AST (15-37) U/L ALT (14-59) U/L Alkaline Phosphatase (46-116) U/L Troponin I (0.00-0.056) ng/mL Total Protein (6.4-8.2) g/dl Albumin (3.4-5.0) g/dl Globulin gm/dL Albumin/Globulin Ratio (1-2) MRSA (PCR) 08/14/18 08/14/18 Range/Units 05:23 12:05 WBC (3.98-10.04) K/mm3 RBC (3.98-5.22) M/mm3 Hgb (11.2-15.7) gm/L Hct (34.1-44.9) % MCV (79.4-94.8) fl MCH (25.6-32.2) pg MCHC (32.2-35.5) g/dl RDW Std Deviation (36.4-46.3) fL Plt Count (182-369) K/mm3 MPV (9.4-12.3) fl Neut % (Auto) (34.0-71.1) % Lymph % (Auto) (19.3-51.7) % [place] % (Auto) (4.7-12.5) % Eos % (Auto) (0.7-5.8) Baso % (Auto) (0.1-1.2) % Neut # (Auto) (1.56-6.13) K/mm3 Lymph # (Auto) (1.18-3.74) K/mm3 [place] # (Auto) (0.24-0.36) K/mm3 Eos # (Auto) (0.04-0.36) K/mm3 Baso # (Auto) (0.01-0.08) K/mm3 PT (9.5-12.1) SECONDS INR Sodium 148 H (136-145) mEq/L Potassium 3.4 L (3.5-5.1) mEq/L Chloride 114 H (98-107) mEq/L Carbon Dioxide 26 (21-32) mEq/L Anion Gap 11.4 (5-15) BUN 9 (7-18) mg/dL Creatinine 0.8 (0.55-1.02) mg/dL Est Cr Clr Drug Dosing 53.38 mL/min Estimated GFR (MDRD) > 60 (>60) mL/min BUN/Creatinine Ratio 11.3 L (14-18) Glucose 98 (83-115) mg/dL POC Glucose 109 (83-110) mg/dL Calcium 7.7 L (8.5-10.1) mg/dL Phosphorus 1.6 L (2.6-4.7) mg/dL Magnesium 1.6 L (1.8-2.4) mg/dl Total Bilirubin 0.3 (0.2-1.0) mg/dL AST 14 L (15-37) U/L ALT 18 (14-59) U/L Alkaline Phosphatase 54 (46-116) U/L Troponin I 0.017 (0.00-0.056) ng/mL Total Protein 5.0 L (6.4-8.2) g/dl Albumin 2.0 L (3.4-5.0) g/dl Globulin 3.0 gm/dL Albumin/Globulin Ratio 0.7 L (1-2) MRSA (PCR) Med Orders - Current: Current Medications Acetaminophen (Tylenol) 650 mg PO Q4H PRN PRN Reason: Pain (Mild 1-3)/fever Bisacodyl (Dulcolax) 5 mg PO DAILY PRN PRN Reason: Constipation Docusate Sodium (Colace) 100 mg PO BID PRN PRN Reason: Constipation Lactated Ringer's (Ringers, Lactated) 1,000 mls @ 100 mls/hr IV ASDIRECTED [facility] Last Admin: 08/14/18 07:57 Dose: 100 mls/hr Potassium Phosphate 30 mmole/ (Sodium Chloride) 510 mls @ 75 mls/hr IV ONETIME ONE Stop: 08/14/18 16:17 Last Admin: 08/14/18 08:38 Dose: 75 mls/hr Potassium Chloride 10 meq/ (Premix) 100 mls @ 100 mls/hr IV Q1H [facility] Stop: 08/14/18 12:29 Insulin Human Lispro (Humalog) 0 unit SUBCUT QIDACANDBED [facility]; Protocol Last Admin: 08/14/18 06:20 Dose: Not Given Losartan Potassium (Cozaar) 25 mg PO DAILY [facility] Last Admin: 08/14/18 08:04 Dose: 25 mg Magnesium Oxide (Magnesium Oxide) 400 mg PO BID [facility] Last Admin: 08/14/18 11:55 Dose: 400 mg Rivastigmine [Exelon ] 4.6 Mg/24hrOwn Med 4.6 mg TOP DAILY [facility] Last Admin: 08/14/18 08:10 Dose: 4.6 mg Ondansetron HCl (Zofran Odt) 4 mg PO Q6H PRN PRN Reason: nausea, able to take PO Pantoprazole Sodium (Protonix) 40 mg PO DAILY@0700 [facility] Last Admin: 08/14/18 06:29 Dose: 40 mg Risperidone (Risperidal) 1 mg PO BID [facility] Last Admin: 08/14/18 08:04 Dose: 1 mg Sertraline HCl (Zoloft) 100 mg PO DAILY [facility] Last Admin: 08/14/18 08:04 Dose: 100 mg Trazodone HCl (Trazodone) 50 mg PO BEDTIME [facility] Last Admin: 08/13/18 20:24 Dose: 50 mg Warfarin Sodium (Coumadin) 2 mg PO DAILY@1800 [facility] Last Admin: 08/13/18 18:26 Dose: 2 mg Discontinued Medications Magnesium Sulfate/Dextrose 1 (gm/ Premix) 100 mls @ 100 mls/hr IV ONETIME ONE Stop: 08/13/18 14:00 Last Admin: 08/13/18 13:15 Dose: Not Given Magnesium Sulfate 2 gm/ Premix 50 mls @ 25 mls/hr IV ONETIME ONE Stop: 08/13/18 15:13 Last Admin: 08/13/18 13:30 Dose: 25 mls/hr Sodium Chloride (Normal Saline) 1,000 mls @ 75 mls/hr IV ASDIRECTED [facility] Last Admin: 08/14/18 05:11 Dose: 75 mls/hr Magnesium Sulfate 4 gm/ Premix 100 mls @ 25 mls/hr IV ONETIME ONE Stop: 08/13/18 16:20 Last Admin: 08/13/18 17:00 Dose: 25 mls/hr Magnesium Sulfate 2 gm/ Premix 50 mls @ 25 mls/hr IV ONETIME ONE Stop: 08/14/18 09:19 Last Admin: 08/14/18 07:57 Dose: 25 mls/hr Potassium Phosphate 10 mmole/ (Sodium Chloride) 200 mls @ 50 mls/hr IV ONETIME ONE Stop: 08/14/18 11:20 Last Admin: 08/14/18 08:34 Dose: Not Given Magnesium Sulfate 4 gm/ Premix 100 mls @ 25 mls/hr IV ONETIME ONE Stop: 08/14/18 12:29 Metoprolol Tartrate (Lopressor) 2.5 mg IVPUSH ONETIME ONE Stop: 08/13/18 12:17 Last Admin: 08/13/18 12:26 Dose: 2.5 mg Metoprolol Tartrate (Lopressor) 2.5 mg IVPUSH ONETIME ONE Stop: 08/13/18 12:17 Last Admin: 08/13/18 12:28 Dose: Not Given Potassium Chloride (Klor-Con M20) 40 meq PO ONETIME ONE Stop: 08/13/18 11:24 Last Admin: 08/13/18 11:36 Dose: 40 meq - Exam General: Alert, Cooperative HEENT: Mucous Membr. Moist/[place] Neck: Supple Lungs: Clear to Auscultation, Normal Respiratory Effort Cardiovascular: Regular Rate, Regular Rhythm GI/Abdominal Exam: Normal Bowel Sounds, Soft, Non-Tender Extremities: Normal Inspection, Normal Range of Motion Skin: Warm, Dry, Intact EKG INTERPRETATION EKG Date: 08/13/18 Time: 17:50 Rhythm: NSR Rate (Beats/Min): 71 [place]: Normal P-Wave: Present QRS: Normal ST-T: Normal QT: Normal IN/PQ Interval: First-degree AV block Comparison: No Change EKG Interpretation Comments: Early R-wave transition between V2 and V3 No significant change from previous ECG. - Problem List & Annotations (1) Atrial fibrillation SNOMED Code(s): 49351367 Code(s): I48.91 - UNSPECIFIED ATRIAL FIBRILLATION Status: Acute Current Visit: Yes (2) Hypokalemia SNOMED Code(s): 61943307 Code(s): E87.6 - HYPOKALEMIA Status: Acute Current Visit: Yes (3) Hypomagnesemia SNOMED Code(s): 719518289 Code(s): E83.42 - HYPOMAGNESEMIA Status: Acute Current Visit: Yes (4) Tachycardia, paroxysmal SNOMED Code(s): 98044363 Code(s): I47.9 - PAROXYSMAL TACHYCARDIA, UNSPECIFIED Status: Acute Current Visit: Yes (5) Dementia SNOMED Code(s): 91194930 Code(s): F03.90 - UNSPECIFIED DEMENTIA WITHOUT BEHAVIORAL DISTURBANCE Status: Chronic Priority: High Current Visit: No Qualifiers: Dementia type: Alzheimer's disease Alzheimer's disease onset: unspecified onset - Problem List Review Problem List Initiated/Reviewed/Updated: Yes - My Orders Last 24 Hours: My Active Orders 08/13/18 15:42 Bedrest Bedside Commode [RC] ASDIRECTED Blood Glucose Check, Bedside [RC] WITHMEALSANDBED Vital Signs [RC] Q4HR PT Evaluation and Treatment [CONS] Routine Acetaminophen [Tylenol] 650 mg PO Q4H PRN Bisacodyl [Dulcolax] 5 mg PO DAILY PRN Docusate Sodium [Colace] 100 mg PO BID PRN Ondansetron [Zofran ODT] 4 mg PO Q6H PRN 08/13/18 15:43 VTE/DVT Education [RC] PER UNIT ROUTINE 08/13/18 16:00 Losartan [Cozaar] 25 mg PO DAILY 08/13/18 17:00 Insulin Lispro [HumaLOG] See Protocol SUBCUT QIDACANDBED 08/13/18 18:00 Warfarin [Coumadin] 2 mg PO DAILY@1800 08/13/18 21:00 risperiDONE [RisperiDAL] 1 mg PO BID traZODone 50 mg PO BEDTIME 08/13/18 22:07 Code Status [Resuscitation Status] Routine 08/13/18 22:08 Oxygen Therapy [RC] ASDIRECTED 08/13/18 Dinner Mechanical Soft Diet [DIET] 08/14/18 05:10 Patient Status [ADT] Routine 08/14/18 07:00 Pantoprazole [ProTONIX] 40 mg PO DAILY@0700 08/14/18 07:30 Lactated Ringers [Ringers, Lactated] 1,000 ml IV ASDIRECTED 08/14/18 09:00 Rivastigmine [Exelon] 4.6 mg TOP DAILY Sertraline [Zoloft] 100 mg PO DAILY 08/14/18 09:30 Magnesium Oxide 400 mg PO BID Potassium Phosphates 30 mmole Sodium Chloride 0.9% [Normal Saline] 500 ml IV ONETIME 08/14/18 11:06 Consult to Case Management/Compliance Paralegal [CONS] Routine Consult to Harp Action Assembler [CONS] Routine OT Evaluation and Treatment [CONS] Routine 08/14/18 11:21 C DIFFICILE BY PCR W/NAP1 [MOLEC] Routine 08/15/18 05:11 CBC WITH AUTO DIFF [HEME] AM CMP [COMPREHENSIVE METABOLIC PN,CMP] [CHEM] AM INR,PT,PROTHROMBIN TIME [COAG] AM MAGNESIUM [CHEM] AM PHOSPHORUS [CHEM] AM - Plan Plan:: Severe hypomagnesemia - Transferred to floor - Magnesium has improved to 1.6 and we will to supplement with both IV and by mouth magnesium - This may be due to poor oral intake. Review of her medication shows no diuretics or other medications that would cause low magnesium. Hypokalemia - Continue both oral and IV supplementation. Malnourished - Review of the rest of her blood work shows a low albumin and protein level , calcium, phosphorus, and potassium. She has an elevated sodium level. Patient appears to be malnourished and is likely having some refeeding syndrome symptoms. We will continue to follow her magnesium, phosphorus, and potassium closely over the next 24-48 hours. - It appears that at the long-term she is having difficulty with feedings. Increase oral intake will be a necessary goal at the long-term. A. fib with RVR - Resolved Bradycardia - Patient is having episodes of bradycardia. Her pulse drops into the 30s and 40s. - This could be secondary to her electrolytes disorder, sick sinus syndrome, or ischemia. Troponins were negative. - Exelon patch can cause bradycardia, therefore you will discontinue her Exelon patch. Dementia - This may be contributing to oral intake. Likely pulmonary artery hypertension - In April patient came in with pulmonary embolism. Echocardiogram showed an increase in her right ventricular systolic pressure is severely elevated at 64.9 mmHg. This is likely contributing to her hypoxemia when heart rate increases or she increases work load. I had a 30 minute conversation with her son Roge Deluna in regards to his mother' s condition. Patient states that his mother would not want to be intubated or have CPR. He also states that she would not want a pacemaker or other cardiac evaluation including catheterization. She has severe dementia and is unable to make these decisions on her own. Patient will be kept comfortable and we will replace her electrolytes and improve her nutrition. VTE prophylaxis with Coumadin. Discharge: back to long-term in the next couple of days after replenishing electrolytes.
[2018-08-14] MEDS: Potassium Chloride 10 MEQ in Premix Bag 1 BAG IV SCH (12:30)
[2018-08-14] MEDS: Potassium Chloride 10% 20 MEQ/15 ML Soln 15 ML UD Cup PO SCH ×2 (12:51→20:26)
[2018-08-14] MEDS: Warfarin 2 MG Tab PO SCH (18:07)
[2018-08-14] MEDS: traZODone 50 MG Tab PO SCH (20:23)
[2018-08-15] MEDS: Lactated Ringers 1,000 ML IV SCH ×3 (04:08→23:36)
[2018-08-15] MEDS: Pantoprazole 40 MG Tab.CR PO SCH (06:37)
[2018-08-15] MEDS: Insulin Lispro 100 Units/ML 3 ML Vial SUBCUT SCH ×4 (06:45→21:50)
--- NOTE | 2018-08-15 08:14 | CR ---
Chest: Portable view of the chest was obtained. Comparison: Prior chest x-ray of 04/26/18. Heart size is normal. Tortuous thoracic aorta is seen. Lungs are clear with no acute parenchymal change. Bony structures are grossly intact. Impression: 1. Incidental findings. Nothing acute is seen. Diagnostic code #2
[2018-08-15] MEDS: Losartan 25 MG Tab PO SCH (08:46)
[2018-08-15] MEDS: risperiDONE 1 MG Tab PO SCH ×2 (08:46→21:49)
[2018-08-15] MEDS: Magnesium Oxide 400 MG Tab PO SCH ×2 (08:46→21:49)
[2018-08-15] MEDS: Sertraline 50 MG Tab PO SCH (08:46)
[2018-08-15] MEDS ORDERED: Magnesium Sulfate/Water 4 GM in Premix Bag 1 BAG IV ONE ×2 (10:30→11:00)
--- NOTE | 2018-08-15 13:15 | PCM.PN ---
- General Info Date of Service: 08/15/18 Functional Status: Reports: Urinating - Review of Systems General: Reports: Weakness HEENT: Reports: No Symptoms Pulmonary: Reports: No Symptoms Cardiovascular: Reports: No Symptoms Gastrointestinal: Reports: No Symptoms Genitourinary: Reports: No Symptoms Musculoskeletal: Reports: No Symptoms Skin: Reports: No Symptoms Neurological: Reports: No Symptoms Psychiatric: Reports: No Symptoms - Patient Data Vitals - Most Recent: Last Vital Signs Temp 36.4 C 08/15/18 12:21 Pulse 64 08/15/18 12:21 Resp 18 08/15/18 12:21 BP 142/60 H 08/15/18 12:21 Pulse Ox 98 08/15/18 12:21 Weight - Most Recent: 65.091 kg I&O - Last 24 Hours: Intake & Output 08/14/18 08/15/18 08/15/18 22:59 06:59 14:59 Intake Total 1721 250 340 Balance 1721 250 340 Lab Results Last 24 Hours: Laboratory Results - last 24 hr 08/14/18 08/14/18 08/15/18 Range/Units 16:37 21:12 05:39 WBC (3.98-10.04) K/mm3 RBC (3.98-5.22) M/mm3 Hgb (11.2-15.7) gm/L Hct (34.1-44.9) % MCV (79.4-94.8) fl MCH (25.6-32.2) pg MCHC (32.2-35.5) g/dl RDW Std Deviation (36.4-46.3) fL Plt Count (182-369) K/mm3 MPV (9.4-12.3) fl Neut % (Auto) (34.0-71.1) % Lymph % (Auto) (19.3-51.7) % [place] % (Auto) (4.7-12.5) % Eos % (Auto) (0.7-5.8) Baso % (Auto) (0.1-1.2) % Neut # (Auto) (1.56-6.13) K/mm3 Lymph # (Auto) (1.18-3.74) K/mm3 [place] # (Auto) (0.24-0.36) K/mm3 Eos # (Auto) (0.04-0.36) K/mm3 Baso # (Auto) (0.01-0.08) K/mm3 PT (9.5-12.1) SECONDS INR Sodium (136-145) mEq/L Potassium (3.5-5.1) mEq/L Chloride (98-107) mEq/L Carbon Dioxide (21-32) mEq/L Anion Gap (5-15) BUN (7-18) mg/dL Creatinine (0.55-1.02) mg/dL Est Cr Clr Drug Dosing mL/min Estimated GFR (MDRD) (>60) mL/min BUN/Creatinine Ratio (14-18) Glucose (83-115) mg/dL POC Glucose 94 113 H 86 (83-110) mg/dL Calcium (8.5-10.1) mg/dL Phosphorus (2.6-4.7) mg/dL Magnesium (1.8-2.4) mg/dl Total Bilirubin (0.2-1.0) mg/dL AST (15-37) U/L ALT (14-59) U/L Alkaline Phosphatase (46-116) U/L Total Protein (6.4-8.2) g/dl Albumin (3.4-5.0) g/dl Globulin gm/dL Albumin/Globulin Ratio (1-2) 08/15/18 08/15/18 08/15/18 Range/Units 05:47 05:47 05:47 WBC 8.17 (3.98-10.04) K/mm3 RBC 3.72 L (3.98-5.22) M/mm3 Hgb 10.6 L (11.2-15.7) gm/L Hct 35.1 (34.1-44.9) % MCV 94.4 (79.4-94.8) fl MCH 28.5 (25.6-32.2) pg MCHC 30.2 L (32.2-35.5) g/dl RDW Std Deviation 54.8 H (36.4-46.3) fL Plt Count 256 (182-369) K/mm3 MPV 9.7 (9.4-12.3) fl Neut % (Auto) 63.2 (34.0-71.1) % Lymph % (Auto) 27.4 (19.3-51.7) % [place] % (Auto) 8.1 (4.7-12.5) % Eos % (Auto) 0.2 L (0.7-5.8) Baso % (Auto) 0.5 (0.1-1.2) % Neut # (Auto) 5.16 (1.56-6.13) K/mm3 Lymph # (Auto) 2.24 (1.18-3.74) K/mm3 [place] # (Auto) 0.66 H (0.24-0.36) K/mm3 Eos # (Auto) 0.02 L (0.04-0.36) K/mm3 Baso # (Auto) 0.04 (0.01-0.08) K/mm3 PT 28.5 H (9.5-12.1) SECONDS INR 2.67 Sodium 142 (136-145) mEq/L Potassium 4.4 (3.5-5.1) mEq/L Chloride 109 H (98-107) mEq/L Carbon Dioxide 28 (21-32) mEq/L Anion Gap 9.4 (5-15) BUN 7 (7-18) mg/dL Creatinine 0.7 (0.55-1.02) mg/dL Est Cr Clr Drug Dosing 61.01 mL/min Estimated GFR (MDRD) > 60 (>60) mL/min BUN/Creatinine Ratio 10.0 L (14-18) Glucose 85 (83-115) mg/dL POC Glucose (83-110) mg/dL Calcium 8.0 L (8.5-10.1) mg/dL Phosphorus 1.4 L (2.6-4.7) mg/dL Magnesium 1.6 L (1.8-2.4) mg/dl Total Bilirubin 0.3 (0.2-1.0) mg/dL AST 20 (15-37) U/L ALT 20 (14-59) U/L Alkaline Phosphatase 57 (46-116) U/L Total Protein 5.0 L (6.4-8.2) g/dl Albumin 2.0 L (3.4-5.0) g/dl Globulin 3.0 gm/dL Albumin/Globulin Ratio 0.7 L (1-2) 08/15/18 Range/Units 10:32 WBC (3.98-10.04) K/mm3 RBC (3.98-5.22) M/mm3 Hgb (11.2-15.7) gm/L Hct (34.1-44.9) % MCV (79.4-94.8) fl MCH (25.6-32.2) pg MCHC (32.2-35.5) g/dl RDW Std Deviation (36.4-46.3) fL Plt Count (182-369) K/mm3 MPV (9.4-12.3) fl Neut % (Auto) (34.0-71.1) % Lymph % (Auto) (19.3-51.7) % [place] % (Auto) (4.7-12.5) % Eos % (Auto) (0.7-5.8) Baso % (Auto) (0.1-1.2) % Neut # (Auto) (1.56-6.13) K/mm3 Lymph # (Auto) (1.18-3.74) K/mm3 [place] # (Auto) (0.24-0.36) K/mm3 Eos # (Auto) (0.04-0.36) K/mm3 Baso # (Auto) (0.01-0.08) K/mm3 PT (9.5-12.1) SECONDS INR Sodium (136-145) mEq/L Potassium (3.5-5.1) mEq/L Chloride (98-107) mEq/L Carbon Dioxide (21-32) mEq/L Anion Gap (5-15) BUN (7-18) mg/dL Creatinine (0.55-1.02) mg/dL Est Cr Clr Drug Dosing mL/min Estimated GFR (MDRD) (>60) mL/min BUN/Creatinine Ratio (14-18) Glucose (83-115) mg/dL POC Glucose 126 H (83-110) mg/dL Calcium (8.5-10.1) mg/dL Phosphorus (2.6-4.7) mg/dL Magnesium (1.8-2.4) mg/dl Total Bilirubin (0.2-1.0) mg/dL AST (15-37) U/L ALT (14-59) U/L Alkaline Phosphatase (46-116) U/L Total Protein (6.4-8.2) g/dl Albumin (3.4-5.0) g/dl Globulin gm/dL Albumin/Globulin Ratio (1-2) Med Orders - Current: Current Medications Acetaminophen (Tylenol) 650 mg PO Q4H PRN PRN Reason: Pain (Mild 1-3)/fever Bisacodyl (Dulcolax) 5 mg PO DAILY PRN PRN Reason: Constipation Docusate Sodium (Colace) 100 mg PO BID PRN PRN Reason: Constipation Lactated Ringer's (Ringers, Lactated) 1,000 mls @ 100 mls/hr IV ASDIRECTED [facility] Last Admin: 08/15/18 04:08 Dose: 100 mls/hr Insulin Human Lispro (Humalog) 0 unit SUBCUT QIDACANDBED [facility]; Protocol Last Admin: 08/15/18 10:34 Dose: Not Given Losartan Potassium (Cozaar) 25 mg PO DAILY [facility] Last Admin: 08/15/18 08:46 Dose: 25 mg Magnesium Oxide (Magnesium Oxide) 400 mg PO BID [facility] Last Admin: 08/15/18 08:46 Dose: 400 mg Ondansetron HCl (Zofran Odt) 4 mg PO Q6H PRN PRN Reason: nausea, able to take PO Pantoprazole Sodium (Protonix) 40 mg PO DAILY@0700 [facility] Last Admin: 08/15/18 06:37 Dose: 40 mg Risperidone (Risperidal) 1 mg PO BID [facility] Last Admin: 08/15/18 08:46 Dose: 1 mg Sertraline HCl (Zoloft) 100 mg PO DAILY [facility] Last Admin: 08/15/18 08:46 Dose: 100 mg Trazodone HCl (Trazodone) 50 mg PO BEDTIME [facility] Last Admin: 08/14/18 20:23 Dose: 50 mg Warfarin Sodium (Pharmacy To Dose - Warfarin) 0 dose .XX ASDIRECTED PRN PRN Reason: PHARMACY TO DOSE WARFARIN Warfarin Sodium (Coumadin) 2 mg PO DAILY@1800 [facility] Stop: 08/15/18 21:00 Discontinued Medications Magnesium Sulfate/Dextrose 1 (gm/ Premix) 100 mls @ 100 mls/hr IV ONETIME ONE Stop: 08/13/18 14:00 Last Admin: 08/13/18 13:15 Dose: Not Given Magnesium Sulfate 2 gm/ Premix 50 mls @ 25 mls/hr IV ONETIME ONE Stop: 08/13/18 15:13 Last Admin: 08/13/18 13:30 Dose: 25 mls/hr Sodium Chloride (Normal Saline) 1,000 mls @ 75 mls/hr IV ASDIRECTED [facility] Last Admin: 08/14/18 05:11 Dose: 75 mls/hr Magnesium Sulfate 4 gm/ Premix 100 mls @ 25 mls/hr IV ONETIME ONE Stop: 08/13/18 16:20 Last Admin: 08/13/18 17:00 Dose: 25 mls/hr Magnesium Sulfate 2 gm/ Premix 50 mls @ 25 mls/hr IV ONETIME ONE Stop: 08/14/18 09:19 Last Admin: 08/14/18 07:57 Dose: 25 mls/hr Potassium Phosphate 10 mmole/ (Sodium Chloride) 200 mls @ 50 mls/hr IV ONETIME ONE Stop: 08/14/18 11:20 Last Admin: 08/14/18 08:34 Dose: Not Given Potassium Phosphate 30 mmole/ (Sodium Chloride) 510 mls @ 75 mls/hr IV ONETIME ONE Stop: 08/14/18 16:17 Last Admin: 08/14/18 08:38 Dose: 75 mls/hr Potassium Chloride 10 meq/ (Premix) 100 mls @ 100 mls/hr IV Q1H [facility] Stop: 08/14/18 12:29 Last Admin: 08/14/18 12:30 Dose: Not Given Magnesium Sulfate 4 gm/ Premix 100 mls @ 25 mls/hr IV ONETIME ONE Stop: 08/14/18 12:29 Magnesium Sulfate 4 gm/ Premix 100 mls @ 25 mls/hr IV ONETIME ONE Stop: 08/15/18 14:29 Last Admin: 08/15/18 10:33 Dose: 25 mls/hr Magnesium Sulfate 4 gm/ Premix 100 mls @ 25 mls/hr IV ONETIME ONE Stop: 08/15/18 11:01 Last Admin: 08/15/18 11:07 Dose: Not Given Metoprolol Tartrate (Lopressor) 2.5 mg IVPUSH ONETIME ONE Stop: 08/13/18 12:17 Last Admin: 08/13/18 12:26 Dose: 2.5 mg Metoprolol Tartrate (Lopressor) 2.5 mg IVPUSH ONETIME ONE Stop: 08/13/18 12:17 Last Admin: 08/13/18 12:28 Dose: Not Given Rivastigmine [Exelon ] 4.6 Mg/24hrOwn Med 4.6 mg TOP DAILY [facility] Last Admin: 08/14/18 08:10 Dose: 4.6 mg Potassium Chloride (Klor-Con M20) 40 meq PO ONETIME ONE Stop: 08/13/18 11:24 Last Admin: 08/13/18 11:36 Dose: 40 meq Potassium Chloride (Potassium Chloride Solution) 20 meq PO BID [facility] Stop: 08/14/18 21:01 Last Admin: 08/14/18 20:26 Dose: 20 meq Warfarin Sodium (Coumadin) 2 mg PO DAILY@1800 [facility] Last Admin: 08/14/18 18:07 Dose: 2 mg - Exam Quality Assessment: DVT Prophylaxis General: Alert, Oriented, Cooperative, No Acute Distress HEENT: Pupils Equal, Pupils Reactive, EOMI Neck: Trachea Midline, No JVD Lungs: Normal Respiratory Effort Cardiovascular: Regular Rate GI/Abdominal Exam: Normal Bowel Sounds, Soft, Non-Tender, No Organomegaly, No Distention (Female) Exam: Deferred Back Exam: Normal Inspection Extremities: Normal Inspection, Non-Tender, Normal Capillary Refill Skin: Warm Neurological: No New Focal Deficit Psy/Mental Status: Alert, Normal Affect, Normal Mood - Problem List Review Problem List Initiated/Reviewed/Updated: Yes - My Orders Last 24 Hours: My Active Orders 08/15/18 10:30 Pharmacy to Dose - Warfarin 0 dose .XX ASDIRECTED PRN 08/16/18 05:00 BASIC METABOLIC PANEL,BMP [CHEM] Routine CBC WITH AUTO DIFF [HEME] Routine CRP [C-REACTIVE PROTEIN] [CHEM] Routine LACTIC ACID [CHEM] Routine MAGNESIUM [CHEM] Routine 08/16/18 05:11 INR,PT,PROTHROMBIN TIME [COAG] AM 08/17/18 05:11 INR,PT,PROTHROMBIN TIME [COAG] AM 08/18/18 05:11 INR,PT,PROTHROMBIN TIME [COAG] AM 08/19/18 05:11 INR,PT,PROTHROMBIN TIME [COAG] AM 08/20/18 05:11 INR,PT,PROTHROMBIN TIME [COAG] AM - Plan Plan:: Impression/Plan: Severe hypomagnesemia - Transferred to floor - Magnesium has improved to 1.6 and we will to supplement with both IV and by mouth magnesium - This may be due to poor oral intake. Review of her medication shows no diuretics or other medications that would cause low magnesium. Hypokalemia - Continue both oral and IV supplementation. Malnourished - Review of the rest of her blood work shows a low albumin and protein level , calcium, phosphorus, and potassium. She has an elevated sodium level. Patient appears to be malnourished and is likely having some refeeding syndrome symptoms. We will continue to follow her magnesium, phosphorus, and potassium closely over the next 24-48 hours. - It appears that at the senior living she is having difficulty with feedings. Increase oral intake will be a necessary goal at the senior living. A. fib with RVR - Resolved Bradycardia - Patient is having episodes of bradycardia. Her pulse drops into the 30s and 40s. Exelon ---bradycardia, therefore you will discontinue her Exelon patch; resolved. Dementia - This may be contributing to oral intake. Likely pulmonary artery hypertension - In April patient came in with pulmonary embolism. Echocardiogram showed an increase in her right ventricular systolic pressure is severely elevated at 64.9 mmHg. This is likely contributing to her hypoxemia when heart rate increases or she increases work load. I had a 30 minute conversation with her son Roge Deluna in regards to his mother' s condition. Patient states that his mother would not want to be intubated or have CPR. He also states that she would not want a pacemaker or other cardiac evaluation including catheterization. She has severe dementia and is unable to make these decisions on her own. Patient will be kept comfortable and we will replace her electrolytes and improve her nutrition. VTE prophylaxis with Coumadin. Discharge: back to senior living in the next couple of days after replenishing electrolytes. AUDREY Lagunas, 08/16/18
[2018-08-15] MEDS ORDERED: Sodium Phosphate 3 mMole/ML 15 ML SDV IV STA (14:22)
[2018-08-15] MEDS ORDERED: Sodium Phosphate 30 MMOLE in Sodium Chloride 0.9% 250 ML IV ONE (15:00)
[2018-08-15] MEDS ORDERED: Warfarin 2 MG Tab PO SCH (18:00)
[2018-08-15] MEDS: traZODone 50 MG Tab PO SCH (21:49)
[2018-08-16] MEDS: Insulin Lispro 100 Units/ML 3 ML Vial SUBCUT SCH ×2 (06:27→11:25)
[2018-08-16] MEDS: Pantoprazole 40 MG Tab.CR PO SCH (06:27)
--- NOTE | 2018-08-16 07:57 | PCM.DCSUM1 ---
Discharge Summary - Hospital Course Free Text/Narrative:: 78 year old female presented with abnormal lab results which were corrected, additionally meds were reviewed which resulted in holding Metformin. The Exelon was discontinued. All other home meds were resumed. She had transient NCT, this resolved. HPI Initial Comments: This 78-year-old female with severe dementia was brought in from a nursing facility secondary to an hypoxic episode that happened in the longterm and the patient became nonresponsive. History is obtained through the emergency room physician and longterm records. Son was not available for me to interview. Patient was brought to the emergency room where another episode occurred and her pulse ox dropped into the 50s and her heart rate went into the 130s. Patient has underlying baseline atrial fibrillation. Initial workup in the emergency room found that her magnesium was low at 0.2. Review of her old records demonstrates that when she was in the hospital in April 2018 she also had a low magnesium of 0.5 on presentation. Patient is not on any home magnesium but is on home potassium. Her potassium in the emergency room was slightly low at 3.2. The emergency room physician gave her oral potassium and 2 g IV magnesium. Patient is now in the ICU and resting comfortably. Emergency room nurses stated that she ate lunch without difficulty and has taken her oral medications without difficulty. She is noncommunicative. Nursing reported that she did have a couple episodes of vomiting when she was at the nursing facility. Diagnosis: Stroke: No - Discharge Data Discharge Date: 08/16/18 Discharge Disposition: DC/Tfer to SNF 03 Condition: Good - Patient Summary/Data Consults: Consultations 08/13/18 15:42 PT Evaluation and Treatment [CONS] Routine 08/14/18 11:06 Consult to Case Management/Chief Green Officer [CONS] Routine Consult to Manager Organizational [CONS] Routine OT Evaluation and Treatment [CONS] Routine - Patient Instructions Diet: Usual Diet as Tolerated Activity: As Tolerated Driving: Do Not Drive Showering/Bathing: May Shower Notify Provider of: Fever, Increased Pain, Nausea and/or Vomiting - Discharge Plan *PRESCRIPTION DRUG MONITORING PROGRAM REVIEWED*: Not Applicable *COPY OF PRESCRIPTION DRUG MONITORING REPORT IN PATIENT CRISS: Not Applicable Home Medications: Home Meds Potassium Chloride [Klor-Con] 10 meq PO DAILY 03/15/15 [History] metFORMIN [Glucophage] 1,000 mg PO BIDMEALS 03/15/15 [History] Sertraline [Zoloft] 100 mg PO DAILY 08/22/15 [History] risperiDONE 1 mg PO BID 08/22/15 [History] traZODone 50 mg PO BEDTIME #30 tablet 08/26/15 [Rx] Hydrocodone/Acetaminophen [Brooks 5-325] 5 - 325 mg PO Q8H PRN 03/05/17 [History] Magnesium Hydroxide [Milk of Magnesia] 15 ml PO ASDIRECTED PRN 03/05/17 [History ] Memantine HCl [Namenda XR] 28 mg PO DAILY 03/06/17 [History] Losartan [Cozaar] 25 mg PO DAILY 07/04/17 [History] Alum Hydrox/Mag Hydrox/Simeth [Maalox Advanced] 10 ml PO Q4H PRN 01/05/18 [ History] Aspirin [Adult Aspirin] 81 mg PO DAILY 01/05/18 [History] Cholecalciferol (Vitamin D3) [Vitamin D3] 2,000 unit PO DAILY 01/05/18 [History] Loperamide [Imodium] 4 mg PO DAILY PRN 01/05/18 [History] Omeprazole 20 mg PO DAILY 01/05/18 [History] Warfarin [Coumadin] 2 mg PO DAILY 08/13/18 [History] Other Amb Orders: BASIC METABOLIC PANEL,BMP [CHEM] Location: None Selected MAGNESIUM [CHEM] Location: None Selected Patient Handouts: Supraventricular Tachycardia, Adult, [id number], Hypomagnesemia Referrals: Maxx Hutton MD [Primary Care Provider] - 08/22/18 1:00 pm - Discharge Summary/Plan Comment DC Time >30 min.: No Discharge Summary/Plan Comment: Impression/Plan: Severe hypomagnesemia - Transferred to floor - Magnesium has improved to 1.6 and we will to supplement with both IV and by mouth magnesium - This may be due to poor oral intake. Review of her medication shows no diuretics or other medications that would cause low magnesium. Hypokalemia - Continue both oral and IV supplementation. Malnourished - Review of the rest of her blood work shows a low albumin and protein level , calcium, phosphorus, and potassium. She has an elevated sodium level. Patient appears to be malnourished and is likely having some refeeding syndrome symptoms. We will continue to follow her magnesium, phosphorus, and potassium closely over the next 24-48 hours. - It appears that at the longterm she is having difficulty with feedings. Increase oral intake will be a necessary goal at the longterm. A. fib with RVR - Resolved Bradycardia - Patient is having episodes of bradycardia. Her pulse drops into the 30s and 40s. Exelon ---bradycardia, therefore you will discontinue her Exelon patch; resolved. Dementia - This may be contributing to oral intake. Likely pulmonary artery hypertension - In April patient came in with pulmonary embolism. Echocardiogram showed an increase in her right ventricular systolic pressure is severely elevated at 64.9 mmHg. This is likely contributing to her hypoxemia when heart rate increases or she increases work load. I had a 30 minute conversation with her son Roge Deluna in regards to his mother' s condition. Patient states that his mother would not want to be intubated or have CPR. He also states that she would not want a pacemaker or other cardiac evaluation including catheterization. She has severe dementia and is unable to make these decisions on her own. Patient will be kept comfortable and we will replace her electrolytes and improve her nutrition. VTE prophylaxis with Coumadin. Discharge: back to longterm in the next couple of days after replenishing electrolytes. AUDREY Lagunas, 08/16/18 - General Info Date of Service: 08/13/18 Functional Status: Reports: Tolerating Diet, Urinating - Review of Systems General: Reports: No Symptoms HEENT: Reports: No Symptoms Pulmonary: Reports: No Symptoms Cardiovascular: Reports: No Symptoms Gastrointestinal: Reports: No Symptoms Genitourinary: Reports: No Symptoms Musculoskeletal: Reports: No Symptoms Skin: Reports: No Symptoms Neurological: Reports: No Symptoms Psychiatric: Reports: No Symptoms - Patient Data Vitals - Most Recent: Last Vital Signs Temp 36.9 C 08/16/18 04:50 Pulse 64 08/16/18 04:50 Resp 16 08/16/18 04:50 BP 123/91 H 08/16/18 04:50 Pulse Ox 92 L 08/16/18 04:50 Weight - Most Recent: 66.406 kg I&O - Last 24 hours: Intake & Output 08/15/18 08/16/18 08/16/18 22:59 06:59 14:59 Intake Total 3078 1815 Balance 3078 1815 Lab Results - Last 24 hrs: Laboratory Results - last 24 hr 08/15/18 08/15/1808/15/19 Range/Units 10:32 17:32 21:18 PT (9.5-12.1) SECONDS INR Sodium (136-145) mEq/L Potassium (3.5-5.1) mEq/L Chloride (98-107) mEq/L Carbon Dioxide (21-32) mEq/L Anion Gap (5-15) BUN (7-18) mg/dL Creatinine (0.55-1.02) mg/dL Est Cr Clr Drug Dosing mL/min Estimated GFR (MDRD) (>60) mL/min BUN/Creatinine Ratio (14-18) Glucose (83-115) mg/dL POC Glucose 126 H 173 H 100 (83-110) mg/dL Lactic Acid (0.4-2.0) mmol/L Calcium (8.5-10.1) mg/dL Magnesium (1.8-2.4) mg/dl C-Reactive Protein (<1.0) mg/dL 08/16/18 08/16/18 08/16/18 Range/Units 05:56 05:56 05:56 PT 24.2 H (9.5-12.1) SECONDS INR 2.26 Sodium 142 (136-145) mEq/L Potassium 4.6 (3.5-5.1) mEq/L Chloride 107 (98-107) mEq/L Carbon Dioxide 28 (21-32) mEq/L Anion Gap 11.6 (5-15) BUN 8 (7-18) mg/dL Creatinine 0.8 (0.55-1.02) mg/dL Est Cr Clr Drug Dosing 53.67 mL/min Estimated GFR (MDRD) > 60 (>60) mL/min BUN/Creatinine Ratio 10.0 L (14-18) Glucose 84 (83-115) mg/dL POC Glucose (83-110) mg/dL Lactic Acid 0.6 (0.4-2.0) mmol/L Calcium 8.0 L (8.5-10.1) mg/dL Magnesium 2.1 (1.8-2.4) mg/dl C-Reactive Protein 0.8 (<1.0) mg/dL 08/16/18 Range/Units 06:23 PT (9.5-12.1) SECONDS INR Sodium (136-145) mEq/L Potassium (3.5-5.1) mEq/L Chloride (98-107) mEq/L Carbon Dioxide (21-32) mEq/L Anion Gap (5-15) BUN (7-18) mg/dL Creatinine (0.55-1.02) mg/dL Est Cr Clr Drug Dosing mL/min Estimated GFR (MDRD) (>60) mL/min BUN/Creatinine Ratio (14-18) Glucose (83-115) mg/dL POC Glucose 96 (83-110) mg/dL Lactic Acid (0.4-2.0) mmol/L Calcium (8.5-10.1) mg/dL Magnesium (1.8-2.4) mg/dl C-Reactive Protein (<1.0) mg/dL Med Orders - Current: Current Medications Acetaminophen (Tylenol) 650 mg PO Q4H PRN PRN Reason: Pain (Mild 1-3)/fever Aspirin (Halfprin) 81 mg PO DAILY [facility] Bisacodyl (Dulcolax) 5 mg PO DAILY PRN PRN Reason: Constipation Last Admin: 08/16/18 06:27 Dose: 5 mg Docusate Sodium (Colace) 100 mg PO BID PRN PRN Reason: Constipation Lactated Ringer's (Ringers, Lactated) 1,000 mls @ 100 mls/hr IV ASDIRECTED [facility] Last Admin: 08/15/18 23:36 Dose: 100 mls/hr Insulin Human Lispro (Humalog) 0 unit SUBCUT QIDACANDBED [facility]; Protocol Last Admin: 08/16/18 06:27 Dose: Not Given Losartan Potassium (Cozaar) 25 mg PO DAILY [facility] Last Admin: 08/15/18 08:46 Dose: 25 mg Magnesium Oxide (Magnesium Oxide) 400 mg PO BID [facility] Last Admin: 08/15/18 21:49 Dose: 400 mg Memantine (Namenda) 10 mg PO BID [facility] Ondansetron HCl (Zofran Odt) 4 mg PO Q6H PRN PRN Reason: nausea, able to take PO Pantoprazole Sodium (Protonix) 40 mg PO DAILY@0700 [facility] Last Admin: 08/16/18 06:27 Dose: 40 mg Risperidone (Risperidal) 1 mg PO BID [facility] Last Admin: 08/15/18 21:49 Dose: 1 mg Sertraline HCl (Zoloft) 100 mg PO DAILY [facility] Last Admin: 08/15/18 08:46 Dose: 100 mg Trazodone HCl (Trazodone) 50 mg PO BEDTIME [facility] Last Admin: 08/15/18 21:49 Dose: 50 mg Warfarin Sodium (Pharmacy To Dose - Warfarin) 0 dose .XX ASDIRECTED PRN PRN Reason: PHARMACY TO DOSE WARFARIN Discontinued Medications Magnesium Sulfate/Dextrose 1 (gm/ Premix) 100 mls @ 100 mls/hr IV ONETIME ONE Stop: 08/13/18 14:00 Last Admin: 08/13/18 13:15 Dose: Not Given Magnesium Sulfate 2 gm/ Premix 50 mls @ 25 mls/hr IV ONETIME ONE Stop: 08/13/18 15:13 Last Admin: 08/13/18 13:30 Dose: 25 mls/hr Sodium Chloride (Normal Saline) 1,000 mls @ 75 mls/hr IV ASDIRECTED [facility] Last Admin: 08/14/18 05:11 Dose: 75 mls/hr Magnesium Sulfate 4 gm/ Premix 100 mls @ 25 mls/hr IV ONETIME ONE Stop: 08/13/18 16:20 Last Admin: 08/13/18 17:00 Dose: 25 mls/hr Magnesium Sulfate 2 gm/ Premix 50 mls @ 25 mls/hr IV ONETIME ONE Stop: 08/14/18 09:19 Last Admin: 08/14/18 07:57 Dose: 25 mls/hr Potassium Phosphate 10 mmole/ (Sodium Chloride) 200 mls @ 50 mls/hr IV ONETIME ONE Stop: 08/14/18 11:20 Last Admin: 08/14/18 08:34 Dose: Not Given Potassium Phosphate 30 mmole/ (Sodium Chloride) 510 mls @ 75 mls/hr IV ONETIME ONE Stop: 08/14/18 16:17 Last Admin: 08/14/18 08:38 Dose: 75 mls/hr Potassium Chloride 10 meq/ (Premix) 100 mls @ 100 mls/hr IV Q1H [facility] Stop: 08/14/18 12:29 Last Admin: 08/14/18 12:30 Dose: Not Given Magnesium Sulfate 4 gm/ Premix 100 mls @ 25 mls/hr IV ONETIME ONE Stop: 08/14/18 12:29 Magnesium Sulfate 4 gm/ Premix 100 mls @ 25 mls/hr IV ONETIME ONE Stop: 08/15/18 14:29 Last Admin: 08/15/18 10:33 Dose: 25 mls/hr Magnesium Sulfate 4 gm/ Premix 100 mls @ 25 mls/hr IV ONETIME ONE Stop: 08/15/18 11:01 Last Admin: 08/15/18 11:07 Dose: Not Given Metoprolol Tartrate (Lopressor) 2.5 mg IVPUSH ONETIME ONE Stop: 08/13/18 12:17 Last Admin: 08/13/18 12:26 Dose: 2.5 mg Metoprolol Tartrate (Lopressor) 2.5 mg IVPUSH ONETIME ONE Stop: 08/13/18 12:17 Last Admin: 08/13/18 12:28 Dose: Not Given Rivastigmine [Exelon ] 4.6 Mg/24hrOwn Med 4.6 mg TOP DAILY [facility] Last Admin: 08/14/18 08:10 Dose: 4.6 mg Potassium Chloride (Klor-Con M20) 40 meq PO ONETIME ONE Stop: 08/13/18 11:24 Last Admin: 08/13/18 11:36 Dose: 40 meq Potassium Chloride (Potassium Chloride Solution) 20 meq PO BID [facility] Stop: 08/14/18 21:01 Last Admin: 08/14/18 20:26 Dose: 20 meq Sodium Phosphate (Sodium Phosphate) 30 mmole IV NOW STA Stop: 08/15/18 14:23 Warfarin Sodium (Coumadin) 2 mg PO DAILY@1800 [facility] Last Admin: 08/14/18 18:07 Dose: 2 mg Warfarin Sodium (Coumadin) 2 mg PO DAILY@1800 [facility] Stop: 08/15/18 21:00 Last Admin: 08/15/18 17:33 Dose: 2 mg - Exam Quality Assessment: Reports: DVT Prophylaxis General: Reports: Alert, Oriented, Cooperative HEENT: Reports: Pupils Equal, Pupils Reactive, EOMI Neck: Reports: Trachea Midline, No JVD Lungs: Reports: Normal Respiratory Effort Cardiovascular: Reports: Regular Rate GI/Abdominal Exam: Normal Bowel Sounds, Soft, Non-Tender, No Organomegaly, No Distention (Female) Exam: Deferred Rectal (Female) Exam: Deferred Back Exam: Reports: Normal Inspection Extremities: Normal Inspection, Normal Range of Motion, Non-Tender, No Pedal Edema, Normal Capillary Refill Skin: Reports: Warm Neurological: Reports: No New Focal Deficit Psy/Mental Status: Reports: Alert
[2018-08-16] MEDS: risperiDONE 1 MG Tab PO SCH (08:19)
[2018-08-16] MEDS: Sertraline 50 MG Tab PO SCH (08:19)
[2018-08-16] MEDS: Losartan 25 MG Tab PO SCH (08:19)
[2018-08-16] MEDS: Magnesium Oxide 400 MG Tab PO SCH (08:19)
[2018-08-16] MEDS: Lactated Ringers 1,000 ML IV SCH (08:20)
[2018-08-16] MEDS ORDERED: Memantine 10 MG Tab PO SCH (09:00)
[2018-08-16] MEDS ORDERED: Aspirin 81 MG Tab.EC PO SCH (09:00)
[2018-08-16 11:32] VITALS: BP 104/80
[2018-08-16] MEDS ORDERED: Warfarin 2 MG Tab PO SCH (18:00)
== END 2018-08-16 13:49 | DRG 641 ==
LOC: JD.ED 08:07 → JD.ICU 14:14 → JD.MS 08-14 05:15
PROVIDERS: ADMIT Family Medicine; ATTEND Family Medicine
DX: E83.42 Hypomagnesemia (principal); E46 Unspecified protein-calorie malnutrition; E87.6 Hypokalemia; R09.02 Hypoxemia; I10 Essential (primary) hypertension; K21.9 Gastro-esophageal reflux disease without esophagitis; G30.9 Alzheimer's disease, unspecified; F02.80 Dementia in other diseases classified elsewhere, unspecified severity, without behavioral disturbance, psychotic disturbance, mood disturbance, and anxiety; F20.9 Schizophrenia, unspecified; F41.1 Generalized anxiety disorder; E11.9 Type 2 diabetes mellitus without complications; D64.9 Anemia, unspecified; E53.8 Deficiency of other specified B group vitamins; R32 Unspecified urinary incontinence; I48.91 Unspecified atrial fibrillation; I47.9 Paroxysmal tachycardia, unspecified; I27.21 Secondary pulmonary arterial hypertension; R00.1 Bradycardia, unspecified; G89.29 Other chronic pain; M81.0 Age-related osteoporosis without current pathological fracture; M16.0 Bilateral primary osteoarthritis of hip; M54.5 Low back pain; H54.7 Unspecified visual loss; H91.90 Unspecified hearing loss, unspecified ear; Z85.43 Personal history of malignant neoplasm of ovary; Z88.8 Allergy status to other drugs, medicaments and biological substances; Z79.899 Other long term (current) drug therapy; Z79.82 Long term (current) use of aspirin; Z66 Do not resuscitate; Z87.440 Personal history of urinary (tract) infections; Z79.01 Long term (current) use of anticoagulants; Z86.711 Personal history of pulmonary embolism; Z79.84 Long term (current) use of oral hypoglycemic drugs; Z90.710 Acquired absence of both cervix and uterus
CPT/HCPCS: 36415; 71045; 80053; 83735; 84484 ×2; 85007; 85027; 85610; 85730; 93005 ×2; 96365; 96375; 99285; A9270; J3475; J3490; 80048; 82962; 83605; 84100; 85025; 86140; 87641; 93010; 97110-GP; 97161-GP; 97162-GP; 97166-GO; 97530-GP; 99283; J1815-GY; J7040; J7120